=== PATIENT | female | born 1935 | race Caucasian/White ===

== ENCOUNTER 2017-10-06 22:28 | Inpatient (IN) | payer OTHER ==
--- NOTE | 2017-10-06 22:55 | PDOC ---
History of Present Illness - General Stated Complaint: FALL Time Seen by Provider: 10/06/17 22:36 History Source: Patient, Family (Son) Exam Limitations: No Limitations - History of Present Illness Initial Comments: 10/06/17 23:06 This is a 82-year-old woman with history of diabetes and right breast mass status post right mastectomy who presents emergency Department with left hip pain status post fall while at the [employer] Patient states she was walking into the bathroom felt a little unsteady and lost her balance and fell to the ground landing on her left hip. Patient denies any head trauma. Patient with full recollection of events immediately prior to, during and after fall. Patient denies any chest pain, shortness of breath or dizziness prior to the fall. Patient was assisted off the floor into a chair by her family members prior to EMS arrival. Past History - Past Medical History Allergies/Adverse Reactions: Allergies Allergy/AdvReac Type Severity Reaction Status Date / Time No Known Allergies Allergy Verified 10/06/17 23:18 Home Medications: Ambulatory Orders Clopidogrel Bisulfate [Clopidogrel] 75 mg PO DAILY 10/06/17 Insulin Detemir [Levemir Flextouch] 25 unit SQ DAILY 10/06/17 Insulin Lispro [Humalog] 100 unit SQ DAILY 10/06/17 Levothyroxine [Synthroid -] 100 mcg PO DAILY 10/06/17 Losartan/Hydrochlorothiazide [Losartan-Hctz 100-12.5 mg Tab] 1 each PO DAILY Metoprolol Succinate 100 mg PO DAILY 10/06/17 Simvastatin 20 mg PO DAILY 10/06/17 Review of Systems - Review of Systems Able to Perform ROS?: Yes Is the patient limited Swedish proficient: No Constitutional: No: Symptoms Reported HEENTM: No: Symptoms Reported Respiratory: No: Symptoms reported Cardiac (ROS): No: Symptoms Reported ABD/GI: No: Symptoms Reported : No: Symptoms Reported Musculoskeletal: Yes: See HPI Integumentary: No: Symptoms Reported Neurological: No: Symptoms reported Endocrine: No: Symptoms Reported Hematologic/Lymphatic: No: Symptoms Reported *Physical Exam - Physical Exam General Appearance: Yes: Appropriately Dressed. No: Apparent Distress HEENT: positive: Normal ENT Inspection Neck: positive: Trachea midline, Supple Respiratory/Chest: positive: Lungs Clear, Normal Breath Sounds. negative: Respiratory Distress, Accessory Muscle Use Cardiovascular: positive: Regular Rhythm, Regular Rate, S1, S2. negative: Edema , Murmur Vascular Pulses: Dorsalis-Pedis (R): 2+, Doralis-Pedis (L): 2+ Gastrointestinal/Abdominal: positive: Normal Bowel Sounds, Soft. negative: Tender Musculoskeletal: negative: Normal Inspection (Left lower extremity shortened and externally rotated. ) Extremity: positive: Normal Capillary Refill, Other (Left lower extremity shortened and externally rotated. Tender to palpation to the medial and lateral aspects of the left hip). negative: Normal Range of Motion (Unable to perform range of motion to the left hip) Integumentary: positive: Normal Color, Dry, Warm Neurologic: positive: Alert, Normal Response ED Treatment Course - LABORATORY CBC & Chemistry Diagram: 10/06/17 23:08 10/06/17 23:08 - RADIOLOGY Radiology Studies Ordered: Category Date Time Status CXRPORT [CHEST X-RAY PORTABLE*] [RAD] Stat Radiology 10/06/17 22:48 Ordered HIP & PELVIS-LEFT [RAD] Stat Radiology 10/06/17 22:47 Ordered Medical Decision Making - Medical Decision Making 10/06/17 22:53 A/P: 82-year-old woman with history of diabetes with left hip pain status post fall Respirations even nonlabored Lungs on auscultation bilaterally. RRR. No murmur, rub or gallop noted Abdomen soft nontender nondistended. Tenderness to palpation to the lateral and medial aspects of the left hip. Left lower extremity shortened and externally rotated. 2+ DP pulses present bilaterally Capillary refill less than 2 seconds bilateral lower extremities Labs, x-rays, morphine 10/07/17 01:39 X-ray of the left hip as read by me: Fracture of the left femoral neck noted. EKG- SR with rate 79 Laboratory testing reveals an VI. I'll hydrate patient with normal saline. Patient with return pain I will give the patient another dose of morphine 2 mg IV now. I will admit the patient to hospitalist service and consult orthopedics. 10/07/17 01:54 Case presented to MD Salmeron who accepts patient for admission. 10/07/17 01:54 Consult called in to Dr. Mandujano's office. *DC/Admit/Observation/Transfer Diagnosis at time of Disposition: VI (acute kidney injury) Fractured femoral neck Qualifiers: Encounter type: initial encounter Fracture type: closed Laterality: left Qualified Code(s): S72.002A - Fracture of unspecified part of neck of left femur , initial encounter for closed fracture - Discharge Dispostion Condition at time of disposition: Guarded Admit: Yes - Referrals - Patient Instructions - Post Discharge Activity
[2017-10-06 23:14] LABS: BASO % 0.3 % (0-2.0); EOS % 0.2 % (0-4.5); HEMATOCRIT 32.6 % (32.4-45.2); HEMOGLOBIN 11.2 GM/dL (10.7-15.3); LYMPH % 8.5 % (8-40); MCH 31.8 pg (25.7-33.7); MCHC 34.5 g/dl (32.0-36.0); MEAN CELL VOLUME 92.1 fl (80-96); MEAN PLT VOLUME 11.4 fl (7.5-11.1); MONO % 6.8 % (3.8-10.2); NEUT % 84.2 % (42.8-82.8); PLATELET COUNT 198 K/MM3 (134-434); RBC 3.54 M/mm3 (3.60-5.2); RDW 12.9 % (11.6-15.6); WHITE BLOOD COUNT 8.2 K/mm3 (4.0-10.0)
[2017-10-06 23:30] LABS: PROTHROMBIN TIME (PATIENT) 11.3 SEC (9.98-11.88)
[2017-10-06] MEDS ORDERED: morphine SULFATE 4 MG/ML VIAL IVPUSH ONE (23:30)
[2017-10-06 23:37] LABS: ALBUMIN 2.9 g/dl (3.4-5.0); ANION GAP 11 (8-16); BILIRUBIN,TOTAL 0.4 mg/dL (0.2-1.0); BLOOD UREA NITROGEN 36 mg/dL (7-18); CALCIUM 8.6 mg/dL (8.5-10.1); CHLORIDE 104 mmol/L (98-107); CO2 25 mmol/L (21-32); CREATININE 2.1 mg/dL (0.55-1.02); POTASSIUM 4.5 mmol/L (3.5-5.1); SGOT/AST 26 U/L (15-37); SGPT/ALT 20 U/L (12-78); SODIUM 140 mmol/L (136-145); TOT PROT 6.8 g/dl (6.4-8.2)
[2017-10-06 23:38] LABS: ALK PHOS 59 U/L (45-117)
[2017-10-06 23:41] LABS: GLUCOSE,RANDOM 337 mg/dL (74-106)
[2017-10-06] MEDS ORDERED: morphine SULFATE 4 MG/ML VIAL ONE (23:50)
[2017-10-07 00:03] LABS: URINE APPEARANCE CLEAR; URINE BILIRUBIN NEGATIVE (<2.0 mg/dL); URINE COLOR LTYELLOW; URINE GLUCOSE (UA) 3+ (NEGATIVE); URINE KETONE NEGATIVE (NEGATIVE); URINE LEUK ESTERASE NEGATIVE (NEGATIVE); URINE NITRITE NEGATIVE (NEGATIVE); URINE UROBILINOGEN NEGATIVE mg/dL (0.2-1.0)
[2017-10-07 00:15] LABS: URINE PROTEIN 3+ (NEGATIVE)
[2017-10-07 00:16] LABS: URINE BACTERIA RARE /hpf (NONE SEEN); URINE MUCUS RARE
[2017-10-07] MEDS ORDERED: INSULIN REGULAR HUMAN 100 UNITS/ML *VIAL SQ ONE (00:55)
[2017-10-07] MEDS ORDERED: morphine CARPU-JECT 2 MG/1 ML DISP.SYRIN IVPUSH ONE (01:53)
[2017-10-07] MEDS ORDERED: morphine SULFATE 4 MG/ML VIAL ONE (01:59)
[2017-10-07] MEDS ORDERED: SODIUM CHLORIDE 1,000 ML IV SCH ×2 (02:00→09:16)
[2017-10-07] MEDS ORDERED: INSULIN REGULAR HUMAN 100 UNITS/ML *VIAL ONE (02:01)
--- NOTE | 2017-10-07 02:22 | PN ---
Teaching Attending Note Name of Resident: Krystian Patricia ATTENDING PHYSICIAN STATEMENT I saw and evaluated the patient. Chart, data, imaging reviewed. I reviewed the resident's note and discussed the case with the resident. I agree with the resident's findings and plan as documented. SUBJECTIVE: 82 year old F with pmh of htn, uncontrolled dm, CAD s/p one stent, right breast mass s/p mastectomy 20 years ago presented s/p mechanical fall when she was with her family in [place] on 10/06. Patient landed on her left hip and experienced severe pain immediately after. She denied any trauma to head or LOC. Shortly after she was brought in to hospital, xray of left hip showed left femoral neck fracture. OBJECTIVE: Last Vital Signs Temp Pulse Resp BP Pulse Ox 98.2 F 84 18 136/80 98 10/06/17 22:35 10/06/17 22:35 10/06/17 22:35 10/06/17 22:35 10/06/17 23:20 general - nontoxic, supine in bed heent- atraumatic, normocephalic, poor dentition, dry oral mucosa neck- supple, no masses cv- s1+s2+ tachy chest- cta b/l abdomen- soft, nt, bs+ skin- dry, no echymosis seen msk- no wrist tenderness Abnormal Lab Results 10/06/17 10/06/17 10/06/17 23:08 23:08 23:54 RBC 3.54 L MPV 11.4 H Neutrophils % 84.2 H BUN 36 H Creatinine 2.1 H Random Glucose 337 H* Albumin 2.9 L Urine Protein 3+ H Urine Glucose (UA) 3+ H xray -reviewed, left femoral neck fracture ASSESSMENT AND PLAN: #82yo woman s/p fall with left femoral neck fracture and hyperglycemia. #Left femoral neck fracture -admit to med/surg -pain control -orthopedics consult -NPO -pain control - tylenol IV (nausea/vomiting with morphine) -left hip immobilization -bedrest -lovenox 40mg sc q24hrs for dvt ppx -no antiplatelet agents #Hyperglycemia -2/2 uncontrolled DM -half dose of basal insulin - give 12 units levemir -insulin sliding scale -send a1c -send lipid panel -IV fluid hydration #VI vs CKD -renal U/S -renal lytes, cr osm -serum osm -IV fluid hydration -avoid nephrotoxic meds -i/o -daily weights -hickey catheter for accurate i/o
[2017-10-07] MEDS ORDERED: ACETAMINOPHEN 325 MG TABLET (FP) PO PRN (02:25)
[2017-10-07] MEDS ORDERED: morphine CARPU-JECT 2 MG/1 ML DISP.SYRIN IVPUSH PRN (02:25)
--- NOTE | 2017-10-07 02:44 | HP ---
CHIEF COMPLAINT: mechanical fall HISTORY OF PRESENT ILLNESS: 82 year old F with pmh of htn, dm, right breast mass s/p mastectomy 20 years ago presented s/p mechanical fall. Patient was in her [place] until this evening when she fell in the restroom at a restaurant. Patient states she was trying to sit down on the toilet, lost her balance, and landed on her hip. Patient denies any preceding symptoms and denies any head trauma. Patient states after she fell she was borught directly to the ER. Patient denies any recent fever, chills , chest pain, sob, abdominal pain. Currently patient's pain is 10/10 in her left hip. She denies any numbness/weakness/tingling. Patient walks with a walker at baseline and lives at home with son. She can take care of her ADLs. CXR reveals femoral neck fx on left hip Recent Travel: denies PAST MEDICAL HISTORY: as per hpi + hypothyroidism PAST SURGICAL HISTORY: right mastectomy 20 yrs prior Social History: Smoking: denies Alcohol: denies Drugs: denies Family History: Allergies No Known Allergies Allergy (Verified 10/06/17 23:18) HOME MEDICATIONS: Home Medications Medication Instructions Recorded Clopidogrel Bisulfate [Clopidogrel] 75 mg PO DAILY 10/06/17 Insulin Detemir [Levemir Flextouch] 25 unit SQ DAILY 10/06/17 Insulin Lispro [Humalog] 100 unit SQ DAILY 10/06/17 Levothyroxine [Synthroid -] 100 mcg PO DAILY 10/06/17 Losartan/Hydrochlorothiazide 1 each PO DAILY 10/06/17 [Losartan-Hctz 100-12.5 mg Tab] Metoprolol Succinate 100 mg PO DAILY 10/06/17 Simvastatin 20 mg PO DAILY 10/06/17 REVIEW OF SYSTEMS CONSTITUTIONAL: Absent: fever, chills, diaphoresis, generalized weakness, malaise, loss of appetite, weight change HEENT: Absent: rhinorrhea, nasal congestion, throat pain, throat swelling, difficulty swallowing, mouth swelling, ear pain, eye pain, visual changes CARDIOVASCULAR: Absent: chest pain, syncope, palpitations, irregular heart rate, lightheadedness , peripheral edema RESPIRATORY: Absent: cough, shortness of breath, dyspnea with exertion, orthopnea, wheezing, stridor, hemoptysis GASTROINTESTINAL: Absent: abdominal pain, abdominal distension, nausea, vomiting, diarrhea, constipation, melena, hematochezia GENITOURINARY: Absent: dysuria, frequency, urgency, hesitancy, hematuria, flank pain, genital pain MUSCULOSKELETAL: Absent: myalgia, arthralgia, joint swelling, back pain, neck pain, hip pain SKIN: Absent: rash, itching, pallor HEMATOLOGIC/IMMUNOLOGIC: Absent: easy bleeding, easy bruising, lymphadenopathy, frequent infections ENDOCRINE: Absent: unexplained weight gain, unexplained weight loss, heat intolerance, cold intolerance NEUROLOGIC: Absent: headache, focal weakness or paresthesias, dizziness, unsteady gait, seizure, mental status changes, bladder or bowel incontinence PSYCHIATRIC: Absent: anxiety, depression, suicidal or homicidal ideation, hallucinations. PHYSICAL EXAMINATION Vital Signs - 24 hr 10/06/17 10/06/17 22:35 23:20 Temperature 98.2 F Pulse Rate 84 Respiratory 18 Rate Blood Pressure 136/80 O2 Sat by Pulse 96 98 Oximetry (%) GENERAL: Awake, alert, and fully oriented, in mild distress HEAD: Normal with no signs of trauma. EYES: Extraocular movements intact, sclera anicteric, conjunctiva clear. No lid lag. EARS, NOSE, THROAT: Oropharynx clear without exudates. Dry mucous membranes. NECK: supple LUNGS: Breath sounds equal, clear to auscultation bilaterally. No wheezes, and no crackles. No accessory muscle use. HEART: Tachycardic, regular rhythm, normal S1 and S2 without murmur, rub or gallop. ABDOMEN: Soft, nontender, not distended, normoactive bowel sounds, no guarding, no rebound, no masses. No hepatomegaly or splenomegaly. MUSCULOSKELETAL: + TTP to left hip joint, Decreased ROM of left hip LOWER EXTREMITIES: 2+ popliteal, DP pulses, warm, well-perfused. No calf tenderness. No peripheral edema. NEUROLOGICAL: Cranial nerves II-XII intact. PSYCHIATRIC: Cooperative. Good eye contact. Appropriate mood and affect. SKIN: Warm, dry, normal turgor, no rashes or lesions noted, normal capillary refill. Laboratory Results - last 24 hr 10/06/17 10/06/17 10/06/17 23:08 23:08 23:08 WBC 8.2 RBC 3.54 L Hgb 11.2 Hct 32.6 MCV 92.1 MCH 31.8 MCHC 34.5 RDW 12.9 Plt Count 198 MPV 11.4 H Neutrophils % 84.2 H Lymphocytes % 8.5 Monocytes % 6.8 Eosinophils % 0.2 Basophils % 0.3 PT with INR 11.30 INR 1.00 Sodium 140 Potassium 4.5 Chloride 104 Carbon Dioxide 25 Anion Gap 11 BUN 36 H Creatinine 2.1 H Creat Clearance w eGFR 22.49 Random Glucose 337 H* Calcium 8.6 Total Bilirubin 0.4 AST 26 ALT 20 Alkaline Phosphatase 59 Total Protein 6.8 Albumin 2.9 L Urine Color Urine Appearance Urine pH Ur Specific [place] Urine Protein Urine Glucose (UA) Urine Ketones Urine Blood Urine Nitrite Urine Bilirubin Urine Urobilinogen Ur Leukocyte Esterase Urine WBC (Auto) Urine RBC (Auto) Urine Bacteria Urine Mucus Blood Type Antibody Screen 10/06/17 10/06/17 23:08 23:54 WBC RBC Hgb Hct MCV MCH MCHC RDW Plt Count MPV Neutrophils % Lymphocytes % Monocytes % Eosinophils % Basophils % PT with INR INR Sodium Potassium Chloride Carbon Dioxide Anion Gap BUN Creatinine Creat Clearance w eGFR Random Glucose Calcium Total Bilirubin AST ALT Alkaline Phosphatase Total Protein Albumin Urine Color Ltyellow Urine Appearance Clear Urine pH 7.0 Ur Specific [place] 1.012 Urine Protein 3+ H Urine Glucose (UA) 3+ H Urine Ketones Negative Urine Blood Negative Urine Nitrite Negative Urine Bilirubin Negative Urine Urobilinogen Negative Ur Leukocyte Esterase Negative Urine WBC (Auto) 1 Urine RBC (Auto) 1 Urine Bacteria Rare Urine Mucus Rare Blood Type B POSITIVE Antibody Screen Negative ASSESSMENT/PLAN: 82 year old F with pmh of htn, dm, right breast mass s/p mastectomy 20 years ago presented s/p mechanical fall and found to have left femoral neck fx #Femoral neck fx -iv tylenol for pain control, morphine makes pt nauesous -ortho consulted -ivf @ 100 cc/hr -coags/t&s -cardiology consulted for pre op clearancee #VI vs CKD -baseline cr unknown -ivf @ 100 cc/hr -renal us, serum osm, urine lytes, urine osm, urine cr -avoid nephrotoxic medication -hickey in place -monitor cr #DM -BGM achs -ISS achs #HTN -hold antihtn given kidney disease #CAD s/p stent -hold plavix pending OR for procedure #Hypothyroidism -continue synthroid #hld -continue statin #FEN/GI -ivf @ 100 cc/hr -wnl -npo #ppx lovenox 40 sq daily Visit type - Emergency Visit Emergency Visit: Yes ED Registration Date: 10/07/17 Care time: The patient presented to the Emergency Department on the above date and was hospitalized for further evaluation of their emergent condition. - New Patient This patient is new to me today: Yes Date on this admission: 10/07/17 - Critical Care Critical Care patient: No Hospitalist Screening - Colonoscopy Questionnaire Colonoscopy Questionnaire: Colonoscopy Questionnaire - Patient: 50 - 75 years old and never had a screening colonoscopy: Unknown History of colon or rectal polyps, or CA: Unknown History of IBD, Crohn's disease or UC: Unknown History of abdominal radiation therapy as a child: Unknown - Relative: 1 with colon or rectal CA, or polyps at age 60 or younger: Unknown Colon or rectal CA diagnosed at age 45 or younger: Unknown Multiple relatives with colon or rectal CA: Unknown - Outcome: Screening Result: Negative Screen
[2017-10-07] MEDS ORDERED: ACETAMINOPHEN 1000 MG/100 ML VIAL (NON FORMULARY) IVPB PRN (03:25)
[2017-10-07 04:57] VITALS: BMI 21.7
[2017-10-07] MEDS: INSULIN SLIDING SCALE (NOVOLOG) 1 VIAL SQ SCH ×4 (06:45→22:40)
[2017-10-07] MEDS: LEVOTHYROXINE NA 100 MCG TABLET (FP) PO SCH (06:45)
[2017-10-07 08:21] LABS: INR 1.02 (0.82-1.09); PROTHROMBIN TIME (PATIENT) 11.5 SEC (9.98-11.88)
[2017-10-07 08:23] LABS: ACTIVATED PTT 26.5 SECONDS (26.9-34.4)
[2017-10-07 08:29] LABS: BASO % 0.1 % (0-2.0); HEMATOCRIT 30.3 % (32.4-45.2); HEMOGLOBIN 10.4 GM/dL (10.7-15.3); LYMPH % 4.5 % (8-40); MCH 31.1 pg (25.7-33.7); MCHC 34.3 g/dl (32.0-36.0); MEAN CELL VOLUME 90.5 fl (80-96); MEAN PLT VOLUME 11.2 fl (7.5-11.1); MONO % 4.5 % (3.8-10.2); NEUT % 90.9 % (42.8-82.8); PLATELET COUNT 183 K/MM3 (134-434); RBC 3.35 M/mm3 (3.60-5.2); RDW 12.8 % (11.6-15.6); WHITE BLOOD COUNT 12.5 K/mm3 (4.0-10.0)
--- NOTE | 2017-10-07 08:37 | EKG ---
Test Reason : Blood Pressure : / mmHG Vent. Rate : 078 BPM Atrial Rate : 078 BPM P-R Int : 156 ms QRS Dur : 090 ms QT Int : 422 ms P-R-T Axes : 072 040 078 degrees QTc Int : 481 ms NORMAL SINUS RHYTHM POSSIBLE LEFT ATRIAL ENLARGEMENT NONSPECIFIC ST AND T WAVE ABNORMALITY PROLONGED QT ABNORMAL ECG NO PREVIOUS ECGS AVAILABLE Confirmed by TAMERA WHITLEY MD ([id number]) on 10/07/2017 8:36:29 AM Referred By: Confirmed By:TAMERA WHITLEY MD
[2017-10-07 08:40] LABS: ALBUMIN 2.6 g/dl (3.4-5.0); ANION GAP 14 (8-16); BLOOD UREA NITROGEN 35 mg/dL (7-18); CALCIUM 8.2 mg/dL (8.5-10.1); CHLORIDE 106 mmol/L (98-107); CO2 21 mmol/L (21-32); GLUCOSE,RANDOM 265 mg/dL (74-106); MAGNESIUM 1.8 mg/dL (1.8-2.4); PHOSPHOROUS 3.9 mg/dL (2.5-4.9); POTASSIUM 3.8 mmol/L (3.5-5.1); SGOT/AST 23 U/L (15-37); SGPT/ALT 17 U/L (12-78); SODIUM 141 mmol/L (136-145)
[2017-10-07 08:41] LABS: ALK PHOS 54 U/L (45-117); BILIRUBIN,TOTAL 0.5 mg/dL (0.2-1.0); CREATININE 1.7 mg/dL (0.55-1.02); TOT PROT 6.1 g/dl (6.4-8.2)
[2017-10-07] MEDS ORDERED: ONDANSETRON 4 MG/2 ML VIAL IVPUSH PRN (09:37)
[2017-10-07] MEDS ORDERED: ENOXAPARIN NA (PORCINE) 30 MG/0.3 ML DISP.SYRIN SQ SCH (10:00)
[2017-10-07] MEDS ORDERED: PATIENT'S OWN MEDICATION (NON-FORMULARY) (Losartan/Hydrochlorothiazide [Losartan-Hctz 100- PO SCH (10:00)
--- NOTE | 2017-10-07 10:58 | CON.CARD ---
Consult Consult Specialty:: Cardiology Referred by:: Kentrell Salmeron Reason for Consultation:: preop. CAD - History of Present Illness Chief Complaint: hip fracture History of Present Illness: 82 year old female with a pmhx of htn, dm, right breast mass s/p mastectomy 20 years ago, and CAD s/p stent many years ago who presents with hip fracture after a fall. Patient was in restroom at a restaurant and was trying to sit down when lost her balance and landed on her hip. Denies any loc. No chest pain or palpitations prior. Patient denies any chest pain or sob recently. No pnd, orthopnea, or edema. No syncope. Reports her exercise level is poor at baseline and requires a walker due to balance issues. - History Source History Provided By: Patient - Past Medical History Cardio/Vascular: Yes: CAD, HTN Pulmonary: Yes: Cancer - Alcohol/Substance Use Hx Alcohol Use: No - Smoking History Smoking history: Never smoked Home Medications - Allergies Allergies/Adverse Reactions: Allergies Allergy/AdvReac Type Severity Reaction Status Date / Time No Known Allergies Allergy Verified 10/06/17 23:18 - Home Medications Home Medications: Ambulatory Orders Clopidogrel Bisulfate [Clopidogrel] 75 mg PO DAILY 10/06/17 Insulin Detemir [Levemir Flextouch] 25 unit SQ DAILY 10/06/17 Insulin Lispro [Humalog] 100 unit SQ DAILY 10/06/17 Levothyroxine [Synthroid -] 100 mcg PO DAILY 10/06/17 Losartan/Hydrochlorothiazide [Losartan-Hctz 100-12.5 mg Tab] 1 each PO DAILY Metoprolol Succinate 100 mg PO DAILY 10/06/17 Simvastatin 20 mg PO DAILY 10/06/17 Vital Signs: Vital Signs Temperature 98.1 F 10/07/17 07:50 Pulse Rate 94 H 10/07/17 07:50 Respiratory Rate 18 10/07/17 07:50 Blood Pressure 152/90 10/07/17 07:50 O2 Sat by Pulse Oximetry (%) 98 10/07/17 04:34 Constitutional: Yes: No Distress Neck: Yes: Supple Respiratory: Yes: CTA Bilaterally Gastrointestinal: Yes: Normal Bowel Sounds, Soft Cardiovascular: Yes: Regular Rate and Rhythm JVD: No Carotid Bruit: No PMI: Non-Displaced Heart Sounds: Yes: S1, S2 Murmur: Yes: Systolic Murmur (3/6 HSM apex) Edema: No - Other Data Labs, Other Data: CBC, BMP 10/07/17 08:05 10/07/17 07:15 INR, PTT INR 1.02 (0.82-1.09) 10/07/17 07:15 Imaging - Results Chest X-ray: Report Reviewed EKG: Image Reviewed Problem List - Problems (1) Fractured femoral neck Code(s): S72.009A - FRACTURE OF UNSP PART OF NECK OF UNSP FEMUR, INIT Qualifiers: Encounter type: initial encounter Fracture type: closed Laterality: left Qualified Code(s): S72.002A - Fracture of unspecified part of neck of left femur, initial encounter for closed fracture Assessment/Plan 82 year old female with a pmhx of htn, dm, right breast mass s/p mastectomy 20 years ago, and CAD s/p stent many years ago who presents with hip fracture after a fall found to have a hip fracture. CXR: no chf EKG: sinus rhythm at 78bpm, nl axis, nonspecific t wave abnormalities Cr 2.1 now 1.7 1) Preop for hip fracture -Ms. Sutton's risk factors are htn, dm, cad, and VI on possible CKD. She denies any chest pain or sob. No chf on exam. Has a murmur in mitral area possible MR. EKG with nonspecific T wave abnormalities. No cardiac contraindications to hip fracture surgery. Patient reports that she takes aspirin and plavix at home. Plavix on hold. Would prefer to continue aspirin if possible. IVF's for VI Would continue beta thania periop given h/o CAD. Please call back if needed.
[2017-10-07 11:05] LABS: URINE CREATININE 28.5 mg/dL (20-320)
--- NOTE | 2017-10-07 12:37 | PN ---
Progress Note (short form) - Note Progress Note: Pt seen and examined. She is an 82 year old female pt s/p fall 1 day ago, c/o pain in the left hip. PE LLE is grossly NVI LLE is shortened and externally rotated Good ROM at the left ankle, foot, toes Imp Left hip displaced femoral neck fracture Rec Pt needs Left Hip surgery, left hip hemiarthroplasty. Awaiting medical and cardiac clearance NPO after midnight tonight Will do tomorrow if cleared
--- NOTE | 2017-10-07 13:13 | HOSP ---
Subjective - Review of Symptoms Subjective: Pt reports pain to left hip. Denies sob, chest pain, fever, chills Physical Examination Vital Signs: Vital Signs Temperature 98.1 F 10/07/17 07:50 Pulse Rate 94 H 10/07/17 07:50 Respiratory Rate 18 10/07/17 07:50 Blood Pressure 152/90 10/07/17 07:50 O2 Sat by Pulse Oximetry (%) 98 10/07/17 04:34 Eyes: Yes: Conjunctiva Clear Cardiovascular: Yes: Regular Rate and Rhythm, S1, S2 Respiratory: Yes: Regular, CTA Bilaterally Gastrointestinal: Yes: Normal Bowel Sounds, Soft Breast(s): Yes: Right (mastectomy) Musculoskeletal: Yes: Other (L hip tenderness) Edema: No Neurological: Yes: Alert, Oriented, Cran Nerves II-XII Intact Labs: CBC, BMP 10/07/17 08:05 10/07/17 07:15 Hospitalist Encounter Assessment: Assessment: 82 year old female with pmhx of HTN, DM II, right breast mass s/p mastectomy 20 years ago admitted s/p mechanical fall and found to have left femoral neck fx Plan: 1. Femoral neck fx - For surgery tomorrow - No cardiac contraindications to hip fracture surgery - NPO after midnight 2. 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 CAD s/p stent - Started toprol xl 100mg daily - Plavix on hold - Resume ASA following surgery per surgery rec 4. HTN - Hold HCTZ/losartan combo due to above 5. DM II - ISS, BGM ACHS 7. Hypothyroid - Synthroid 8. HLD - Statin 9. DVT - Heparin sq - hold at midnight
[2017-10-07] MEDS: HEPARIN NA (PORCINE) 5,000 UNITS/ML 1ML VIAL SQ SCH ×2 (13:38→22:35)
[2017-10-07 14:49] LABS: BASO % 0.2 % (0-2.0); HEMATOCRIT 19.6 % (32.4-45.2); LYMPH % 4.4 % (8-40); MCH 31.6 pg (25.7-33.7); MCHC 34.6 g/dl (32.0-36.0); MEAN CELL VOLUME 91.4 fl (80-96); NEUT % 91.4 % (42.8-82.8); PLATELET COUNT 127 K/MM3 (134-434); RBC 2.14 M/mm3 (3.60-5.2); RDW 12.7 % (11.6-15.6)
[2017-10-07 15:05] LABS: HEMOGLOBIN 6.8 GM/dL (10.7-15.3)
--- NOTE | 2017-10-07 16:09 | CONSULT ---
Consult Consult Specialty:: Nephrology Reason for Consultation:: VI - History of Present Illness Chief Complaint: s/p fall and left hip pain History of Present Illness: Pt is an 82 year old female with pmhx of DM who presents to the ER after a fall. She was found to have a left femoral fracture. I was called to evaluate her for VI. She denies history of kidney disease. She denies dysuria or hematuria. She denies nsaid use. She complains of hip pain. She says she lost her balance while walking and fell to the floor. - History Source History Provided By: Patient, Medical Record - Past Medical History Cardio/Vascular: Yes: CAD, HTN Pulmonary: Yes: Cancer - Alcohol/Substance Use Hx Alcohol Use: No - Smoking History Smoking history: Never smoked Home Medications - Allergies Allergies/Adverse Reactions: Allergies Allergy/AdvReac Type Severity Reaction Status Date / Time No Known Allergies Allergy Verified 10/06/17 23:18 - Home Medications Home Medications: Ambulatory Orders Clopidogrel Bisulfate [Clopidogrel] 75 mg PO DAILY 10/06/17 Insulin Detemir [Levemir Flextouch] 25 unit SQ DAILY 10/06/17 Insulin Lispro [Humalog] 100 unit SQ DAILY 10/06/17 Levothyroxine [Synthroid -] 100 mcg PO DAILY 10/06/17 Losartan/Hydrochlorothiazide [Losartan-Hctz 100-12.5 mg Tab] 1 each PO DAILY Metoprolol Succinate 100 mg PO DAILY 10/06/17 Simvastatin 20 mg PO DAILY 10/06/17 Family Disease History - Family Disease History Family History: Denies Review of Systems - Review of Systems Constitutional: reports: Malaise Eyes: reports: No Symptoms HENT: reports: No Symptoms Neck: reports: No Symptoms Cardiovascular: reports: No Symptoms Respiratory: reports: No Symptoms Gastrointestinal: reports: No Symptoms Genitourinary: reports: No Symptoms Musculoskeletal: reports: Joint Pain Neurological: reports: No Symptoms Psychiatric: reports: No Symptoms Physical Exam Vital Signs: Vital Signs Temperature 98.7 F 10/07/17 14:00 Pulse Rate 94 H 10/07/17 14:00 Respiratory Rate 20 10/07/17 14:00 Blood Pressure 152/90 10/07/17 07:50 O2 Sat by Pulse Oximetry (%) 98 10/07/17 04:34 Constitutional: Yes: Calm Eyes: Yes: Conjunctiva Clear HENT: Yes: Atraumatic Cardiovascular: Yes: S1, S2 Respiratory: Yes: CTA Bilaterally Gastrointestinal: Yes: Soft Renal/: Yes: Chua Present Musculoskeletal: Yes: Other (left hip pain) Edema: Yes Edema: LLE: 1+, RLE: 1+ Neurological: Yes: Oriented Psychiatric: Yes: Oriented Labs: CBC, BMP 10/07/17 14:28 10/07/17 07:15 Laboratory Tests 10/06/17 10/06/17 10/06/17 23:08 23:08 23:54 WBC Hgb 11.2 Plt Count BUN Creatinine 2.1 H Random Glucose Urine Protein 3+ H Urine Blood Negative 10/07/17 10/07/17 10/07/17 07:15 08:05 14:28 WBC 8.0 D Hgb 10.4 L 6.8 L* D Plt Count 127 L D BUN 35 H Creatinine 1.7 H Random Glucose 265 H Urine Protein Urine Blood Imaging - Results Chest X-ray: Report Reviewed Problem List - Problems (1) VI (acute kidney injury) Code(s): N17.9 - ACUTE KIDNEY FAILURE, UNSPECIFIED (2) Fractured femoral neck Code(s): S72.009A - FRACTURE OF UNSP PART OF NECK OF UNSP FEMUR, INIT Qualifiers: Encounter type: initial encounter Fracture type: closed Laterality: left Qualified Code(s): S72.002A - Fracture of unspecified part of neck of left femur, initial encounter for closed fracture Assessment/Plan Current Medications Generic Name Dose Route Start Last Admin Trade Name Freq PRN Reason Stop Dose Admin Acetaminophen 1,000 mg 10/07/17 03:25 10/07/17 13:32 Ofirmev Injection - IVPB 1,000 mg Q6H PRN Administration PAIN LEVEL 6-10 Atorvastatin Calcium 10 mg 10/07/17 22:00 Lipitor - PO HS REYNALDO Heparin Sodium (Porcine) 5,000 unit 10/07/17 14:00 10/07/17 13:38 Heparin - SQ 5,000 unit TID REYNALDO Administration Sodium Chloride 1,000 mls @ 60 mls/hr 10/07/17 09:16 10/07/17 10:00 Normal Saline - IV Not Given ASDIR REYNALDO Insulin Aspart 1 vial 10/07/17 07:00 10/07/17 12:36 Novolog Vial Sliding Scale - SQ 10 unit ACHS REYNALDO Administration Protocol Levothyroxine Sodium 100 mcg 10/07/17 07:00 10/07/17 06:45 Synthroid - PO 100 mcg DAILY@0700 REYNALDO Administration Metoprolol Succinate 100 mg 10/07/17 11:15 10/07/17 11:34 Toprol Xl - PO 100 mg DAILY REYNALDO Administration Ondansetron HCl 4 mg 10/07/17 09:37 10/07/17 12:01 Zofran Injection IVPUSH 4 mg Q6H PRN Administration NAUSEA Impression 1. VI 2. femoral neck fracture 3. breast cancer s/p mastectomy 4. DM 5. HTN 6. 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
[2017-10-07 16:58] LABS: BASO % 0.4 % (0-2.0); HEMATOCRIT 27.2 % (32.4-45.2); HEMOGLOBIN 9.3 GM/dL (10.7-15.3); MCH 31.1 pg (25.7-33.7); MCHC 34.2 g/dl (32.0-36.0); MEAN CELL VOLUME 91.2 fl (80-96); MEAN PLT VOLUME 11.6 fl (7.5-11.1); MONO % 6.4 % (3.8-10.2); NEUT % 88.2 % (42.8-82.8); PLATELET COUNT 178 K/MM3 (134-434); RBC 2.99 M/mm3 (3.60-5.2); RDW 12.9 % (11.6-15.6); WHITE BLOOD COUNT 11.7 K/mm3 (4.0-10.0)
[2017-10-07] MEDS: SODIUM CHLORIDE 0.45% 1,000 ML IV SCH (17:45)
[2017-10-07 18:01] LABS: URINE CREATININE 44.4 mg/dL (20-320)
[2017-10-07 18:08] LABS: RATIO URIN PROTEIN/URIN CREAT 25.8 MG/DL
[2017-10-07] MEDS: ATORVASTATIN CA 10 MG TABLET (FP) PO SCH (22:34)
[2017-10-08] MEDS: SODIUM CHLORIDE 0.45% 1,000 ML IV SCH (05:15)
[2017-10-08] MEDS: HEPARIN NA (PORCINE) 5,000 UNITS/ML 1ML VIAL SQ SCH (05:58)
[2017-10-08] MEDS: INSULIN SLIDING SCALE (NOVOLOG) 1 VIAL SQ SCH ×4 (06:08→21:33)
[2017-10-08] MEDS: LEVOTHYROXINE NA 100 MCG TABLET (FP) PO SCH (06:08)
[2017-10-08 08:46] LABS: ANION GAP 15 (8-16); BLOOD UREA NITROGEN 38 mg/dL (7-18); CALCIUM 8.2 mg/dL (8.5-10.1); CHLORIDE 104 mmol/L (98-107); CO2 19 mmol/L (21-32); CREATININE 2.1 mg/dL (0.55-1.02); GLUCOSE,RANDOM 191 mg/dL (74-106); POTASSIUM 3.8 mmol/L (3.5-5.1); SODIUM 138 mmol/L (136-145)
--- NOTE | 2017-10-08 08:55 | PN ---
Progress Note (short form) - Note Progress Note: Ortho OR today for left hip quinten a/p NPO OR for this afternoon d/w Dr. Martinez
[2017-10-08] MEDS ORDERED: LOSARTAN POTASSIUM 50 MG TABLET (FP) PO ONE (12:00)
[2017-10-08] MEDS ORDERED: LORazepam 0.5 MG TABLET PO ONE (12:00)
--- NOTE | 2017-10-08 12:41 | PN ---
Progress Note, Physician History of Present Illness: Pt seen and examined at bedside. She is awake and alert. She denies shortness of breath. She is anxious. - Current Medication List Current Medications: Active Medications Acetaminophen (Ofirmev Injection -) 1,000 mg IVPB Q6H PRN PRN Reason: PAIN LEVEL 6-10 Last Admin: 10/07/17 13:32 Dose: 1,000 mg Atorvastatin Calcium (Lipitor -) 10 mg PO HS [facility] Last Admin: 10/07/17 22:34 Dose: 10 mg Heparin Sodium (Porcine) (Heparin -) 5,000 unit SQ TID [facility] Last Admin: 10/08/17 05:58 Dose: Not Given Insulin Aspart (Novolog Vial Sliding Scale -) 1 vial SQ ACHS [facility] PRN Reason: Protocol Last Admin: 10/08/17 11:51 Dose: Not Given Levothyroxine Sodium (Synthroid -) 100 mcg PO DAILY@0700 [facility] Last Admin: 10/08/17 06:08 Dose: 100 mcg Metoprolol Succinate (Toprol Xl -) 75 mg PO BID [facility] Ondansetron HCl (Zofran Injection) 4 mg IVPUSH Q6H PRN PRN Reason: NAUSEA Last Admin: 10/07/17 12:01 Dose: 4 mg - Objective Vital Signs: Vital Signs Temperature 99 F 10/08/17 05:26 Pulse Rate 74 10/08/17 05:26 Respiratory Rate 20 10/08/17 05:26 Blood Pressure 190/77 10/08/17 05:26 O2 Sat by Pulse Oximetry (%) 98 10/07/17 20:19 Constitutional: Yes: Anxious Eyes: Yes: Conjunctiva Clear Cardiovascular: Yes: S1, S2 Respiratory: Yes: CTA Bilaterally Gastrointestinal: Yes: Soft Genitourinary: Yes: Chua Present Musculoskeletal: Yes: Other (leg pain) Edema: Yes Edema: LLE: Trace, RLE: Trace Neurological: Yes: Oriented Psychiatric: Yes: Oriented Labs: CBC, BMP 10/07/17 16:40 10/08/17 08:07 INR, PTT INR 1.02 (0.82-1.09) 10/07/17 07:15 Problem List - Problems (1) VI (acute kidney injury) Code(s): N17.9 - ACUTE KIDNEY FAILURE, UNSPECIFIED (2) Fractured femoral neck Code(s): S72.009A - FRACTURE OF UNSP PART OF NECK OF UNSP FEMUR, INIT Qualifiers: Encounter type: initial encounter Fracture type: closed Laterality: left Qualified Code(s): S72.002A - Fracture of unspecified part of neck of left femur, initial encounter for closed fracture Assessment/Plan Current Medications Generic Name Dose Route Start Last Admin Trade Name Freq PRN Reason Stop Dose Admin Acetaminophen 1,000 mg 10/07/17 03:25 10/07/17 13:32 Ofirmev Injection - IVPB 1,000 mg Q6H PRN Administration PAIN LEVEL 6-10 Atorvastatin Calcium 10 mg 10/07/17 22:00 10/07/17 22:34 Lipitor - PO 10 mg HS REYNALDO Administration Heparin Sodium (Porcine) 5,000 unit 10/07/17 14:00 10/08/17 05:58 Heparin - SQ Not Given TID [facility] Insulin Aspart 1 vial 10/07/17 07:00 10/08/17 11:51 Novolog Vial Sliding Scale - SQ Not Given ACHS [facility] Protocol Levothyroxine Sodium 100 mcg 10/07/17 07:00 10/08/17 06:08 Synthroid - PO 100 mcg DAILY@0700 REYNALDO Administration Metoprolol Succinate 75 mg 10/08/17 22:00 Toprol Xl - PO BID REYNA[facility]O Ondansetron HCl 4 mg 10/07/17 09:37 10/07/17 12:01 Zofran Injection IVPUSH 4 mg Q6H PRN Administration NAUSEA Laboratory Tests 10/07/17 16:40 Creatine Kinase 68 Impression 1. VI 2. femoral neck fracture 3. breast cancer s/p mastectomy 4. DM 5. HTN 6. 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
[2017-10-08] MEDS ORDERED: METOPROLOL TARTRATE 5 MG/5 ML VIAL IVPUSH ONE (13:04)
[2017-10-08] MEDS ORDERED: METOPROLOL TARTRATE 5 MG/5 ML VIAL IVPB ONE (13:30)
--- NOTE | 2017-10-08 14:08 | PN ---
Physical Exam: SUBJECTIVE: Patient seen and examined at bedside. Has pain with movement. OBJECTIVE: Vital Signs Period Temp Pulse Resp BP Sys/Buckley Pulse Ox Last 24 Hr 99 F-99.0 F 74-75 20-22 146-211/74-96 90-98 GENERAL: The patient is awake, alert, and fully oriented, in no acute distress. Mildly anxious. LUNGS: Breath sounds equal, clear to auscultation bilaterally, no wheezes, no crackles, no accessory muscle use. HEART: Regular rate and rhythm, S1, S2 ABDOMEN: Soft, nontender, nondistended, normoactive bowel sounds, no guarding, no rebound LOWER EXTREMITIES: 2+ pulses, warm, well-perfused, no edema. Left leg rotated and shorter NEUROLOGICAL: Cranial nerves II through XII grossly intact. Normal speech, gait not observed. Laboratory Results - last 24 hr 10/07/17 10/07/17 10/07/17 08:10 14:28 16:30 WBC 8.0 D RBC 2.14 L D Hgb 6.8 L* D Hct 19.6 L D MCV 91.4 MCH 31.6 MCHC 34.6 RDW 12.7 Plt Count 127 L D MPV 10.0 D Neutrophils % 91.4 H Lymphocytes % 4.4 L Monocytes % 4.0 Eosinophils % 0.0 Basophils % 0.2 Sodium Potassium Chloride Carbon Dioxide Anion Gap BUN Creatinine POC Glucometer Random Glucose Hemoglobin A1c % Calcium Creatine Kinase U Random Total Protein 1147 H Urine Creatinine 44.4 Protein/Creatinin Ratio 25.8 Blood Type B POSITIVE Antibody Screen Negative Crossmatch See Detail 10/07/17 10/07/17 10/07/17 16:40 16:40 17:11 WBC 11.7 H D RBC 2.99 L D Hgb 9.3 L D Hct 27.2 L D MCV 91.2 MCH 31.1 MCHC 34.2 RDW 12.9 Plt Count 178 D MPV 11.6 H D Neutrophils % 88.2 H Lymphocytes % 5.0 L Monocytes % 6.4 Eosinophils % 0.0 Basophils % 0.4 Sodium Potassium Chloride Carbon Dioxide Anion Gap BUN Creatinine POC Glucometer 267 Random Glucose Hemoglobin A1c % Calcium Creatine Kinase 68 U Random Total Protein Urine Creatinine Protein/Creatinin Ratio Blood Type Antibody Screen Crossmatch 10/07/17 10/08/17 10/08/17 22:37 05:16 08:07 WBC RBC Hgb Hct MCV MCH MCHC RDW Plt Count MPV Neutrophils % Lymphocytes % Monocytes % Eosinophils % Basophils % Sodium 138 Potassium 3.8 Chloride 104 Carbon Dioxide 19 L Anion Gap 15 BUN 38 H Creatinine 2.1 H POC Glucometer 250 208 Random Glucose 191 H Hemoglobin A1c % Calcium 8.2 L Creatine Kinase U Random Total Protein Urine Creatinine Protein/Creatinin Ratio Blood Type Antibody Screen Crossmatch 10/08/17 10/08/17 08:07 11:16 WBC RBC Hgb Hct MCV MCH MCHC RDW Plt Count MPV Neutrophils % Lymphocytes % Monocytes % Eosinophils % Basophils % Sodium Potassium Chloride Carbon Dioxide Anion Gap BUN Creatinine POC Glucometer 240 Random Glucose Hemoglobin A1c % 9.3 H Calcium Creatine Kinase U Random Total Protein Urine Creatinine Protein/Creatinin Ratio Blood Type Antibody Screen Crossmatch Active Medications Generic Name Dose Route Start Last Admin Trade Name Freq PRN Reason Stop Dose Admin Acetaminophen 1,000 mg 10/07/17 03:25 10/07/17 13:32 Ofirmev Injection - IVPB 1,000 mg Q6H PRN Administration PAIN LEVEL 6-10 Atorvastatin Calcium 10 mg 10/07/17 22:00 10/07/17 22:34 Lipitor - PO 10 mg HS [facility] Administration Heparin Sodium (Porcine) 5,000 unit 10/07/17 14:00 10/08/17 05:58 Heparin - SQ Not Given TID [facility] Insulin Aspart 1 vial 10/07/17 07:00 10/08/17 11:51 Novolog Vial Sliding Scale - SQ Not Given ACHS [facility] Protocol Levothyroxine Sodium 100 mcg 10/07/17 07:00 10/08/17 06:08 Synthroid - PO 100 mcg DAILY@0700 [facility] Administration Metoprolol Succinate 100 mg 10/08/17 22:00 Toprol Xl - PO BID REYNALDO Nifedipine 30 mg 10/08/17 14:15 Procardia Xl - PO DAILY [facility] Ondansetron HCl 4 mg 10/07/17 09:37 10/07/17 12:01 Zofran Injection IVPUSH 4 mg Q6H PRN Administration NAUSEA ASSESSMENT/PLAN 82 year-old female with a PMH significant for HTN, IDDM, CAD s/p stent, and right breast mass s/p mastectomy x 20 years. Admitted for left hip fracture s/p mechanical fall. Acute left femoral neck fracture with varus deformity --to OR tomorrow if BP stable Hypertensive urgency --serial readings SBP>200 --increase Toprol XL 100mg to BID, continue home losartan (monitoring renal function), start nifedipine XL 30mg BID and titrate as needed --if fourth agent is needed, consider clonipine --cardiology following IDDM --Novolog sliding scale coverage --Levemir 25U qhs Coronary artery disease --ASA and Plavix on hold for surgery FEN Fluids: PO intake adequate Electrolytes: replete as indicated Nutrition: low sodium, diabetic; NPO after midnight DVT prophylaxis: SCD on right leg; FREDRICK on left leg Physical therapy Dispo: continues to require inpatient care. Full code. Discussed case with patient's son Napoleon [phone]. Visit type - Emergency Visit Emergency Visit: Yes ED Registration Date: 10/07/17 Care time: The patient presented to the Emergency Department on the above date and was hospitalized for further evaluation of their emergent condition. - New Patient This patient is new to me today: Yes Date on this admission: 10/08/17 - Critical Care Critical Care patient: No
[2017-10-08] MEDS ORDERED: NIFEdipine E.R. 30 MG TABLET (FP) PO SCH (14:15)
--- NOTE | 2017-10-08 14:24 | PN ---
Progress Note, Physician Chief Complaint: Reconsult for severe hypertension. The patient appears confortable. She denies chest pain, SOB or palpitation. History of Present Illness: 82 year old woman with a PMHx of HTN, DM, right breast mass s/p mastectomy 20 years ago, and CAD s/p stent many years ago admitted 10/06/2017 after a mechanical fall with left hip fracture. The patient was seen by Dr. James 2017 for preoperative cardiac clearance. But the planned operation canceled because of severe HTN. - Current Medication List Current Medications: Active Medications Acetaminophen (Ofirmev Injection -) 1,000 mg IVPB Q6H PRN PRN Reason: PAIN LEVEL 6-10 Last Admin: 10/07/17 13:32 Dose: 1,000 mg Atorvastatin Calcium (Lipitor -) 10 mg PO HS [facility] Last Admin: 10/07/17 22:34 Dose: 10 mg Heparin Sodium (Porcine) (Heparin -) 5,000 unit SQ TID [facility] Last Admin: 10/08/17 05:58 Dose: Not Given Insulin Aspart (Novolog Vial Sliding Scale -) 1 vial SQ ACHS [facility] PRN Reason: Protocol Last Admin: 10/08/17 11:51 Dose: Not Given Levothyroxine Sodium (Synthroid -) 100 mcg PO DAILY@0700 [facility] Last Admin: 10/08/17 06:08 Dose: 100 mcg Metoprolol Succinate (Toprol Xl -) 100 mg PO BID [facility] Nifedipine (Procardia Xl -) 30 mg PO DAILY [facility] Ondansetron HCl (Zofran Injection) 4 mg IVPUSH Q6H PRN PRN Reason: NAUSEA Last Admin: 10/07/17 12:01 Dose: 4 mg - Objective Vital Signs: Vital Signs Temperature 99 F 10/08/17 08:15 Pulse Rate 74 10/08/17 13:19 Respiratory Rate 22 10/08/17 08:15 Blood Pressure 210/96 10/08/17 13:56 O2 Sat by Pulse Oximetry (%) 90 L 10/08/17 09:00 General: Well developed. Well nourished. No acute distress. Head: Normocephalic. Atraumatic, Eyes: PERRLA, EOMI. Sclerae anicteric. Conjunctivae clear. Neck: Supple. No JVD. No bruits. Heart: Normal S1, S2: Regularly regular rhythm and rate. II/ HSM. No gallop or rub. Lungs: Symmetrical air entry. Clear to auscultation. No crackle. No wheezing or rhonchi. Abdomen: Soft. Bowel sound positive. Non tender. No masses. Extremities: No edema. Venous stasis. Labs: CBC, BMP 10/07/17 16:40 10/08/17 08:07 INR, PTT INR 1.02 (0.82-1.09) 10/07/17 07:15 Assessment/Plan 82 year old woman with a PMHx of HTN, DM, right breast mass s/p mastectomy 20 years ago, and CAD s/p stent many years ago admitted 10/06/2017 after a mechanical fall with left hip fracture. The patient was seen by Dr. James 2017 for preoperative cardiac clearance. But the planned operation canceled because of severe HTN. Ms. Sutton has no recent chest pain, SOB, palpitation, dizziness, syncope or near syncope. No symptoms of CHF. Reports her exercise level is poor at baseline and requires a walker due to balance issues. CXR: No CHF EKG: sinus rhythm at 78bpm, nl axis, nonspecific t wave abnormalities Cr 2.1 now 1.7 1) Severe hypertension: Increase metoprolol to 100 mg BID Start Nifedipine 30 mg BID. Continue Losartan 100 mg daily. Will consider increase Nifedipine or add Clonidine if BP remains high tomorrow. 2) Preop for hip fracture -Ms. Sutton's risk factors are HTN, DM, CAD, and VI on possible CKD. She has no symptoms of angina or CHF. No CHF on exam or CXR. Has a murmur in mitral area possible MR. EKG with nonspecific T wave abnormalities. No cardiac contraindications to hip fracture surgery once BP is under control. Patient reports that she takes aspirin and plavix at home. Plavix on hold. Would prefer to continue aspirin if possible. IVF's for VI Would continue beta thania periop given h/o CAD. We will follow with you.
[2017-10-08] MEDS ORDERED: cloNIDine HCL 0.1 MG TABLET PO ONE (18:03)
[2017-10-08] MEDS ORDERED: INSULIN (NOVOLOG) ASPART 100 UNITS/ML 10ML VIAL ONE (21:22)
[2017-10-08] MEDS: ATORVASTATIN CA 10 MG TABLET (FP) PO SCH (21:30)
[2017-10-08] MEDS: NIFEdipine E.R. 30 MG TABLET (FP) PO SCH (21:30)
[2017-10-08] MEDS: cloNIDine HCL 0.1 MG TABLET PO SCH (21:31)
[2017-10-08] MEDS ORDERED: metoPROLOL SUCCINATE 25 MG TAB.SR.24H (FP) PO SCH (22:00)
[2017-10-08] MEDS ORDERED: INSULIN (LEVEMIR) 100 UNITS/ML UNITS SQ SCH (22:00)
[2017-10-09] MEDS: LEVOTHYROXINE NA 100 MCG TABLET (FP) PO SCH (06:21)
[2017-10-09] MEDS: INSULIN SLIDING SCALE (NOVOLOG) 1 VIAL SQ SCH ×3 (06:22→21:56)
--- NOTE | 2017-10-09 07:49 | PN ---
Physical Exam: SUBJECTIVE: Patient seen and examined. Son present. Patient states she feels tired, but denies pain. OBJECTIVE: Vital Signs Period Temp Pulse Resp BP Sys/Buckley Pulse Ox Last 24 Hr 98.4 F-100.3 F 60-77 18-22 118-211/57-96 90-94 GENERAL: The patient is awake, alert, and fully oriented, in no acute distress. LUNGS: Breath sounds equal, clear to auscultation bilaterally, no wheezes, no crackles, no accessory muscle use. HEART: Regular rate and rhythm, S1, S2 ABDOMEN: Soft, nontender, nondistended, normoactive bowel sounds, no guarding, no rebound LOWER EXTREMITIES: 2+ pulses, warm, well-perfused, no edema. Left leg rotated and shorter NEUROLOGICAL: Cranial nerves II through XII grossly intact. Normal speech, gait not observed. Laboratory Results - last 24 hr 10/08/17 10/08/17 10/08/17 08:07 08:07 11:16 Sodium 138 Potassium 3.8 Chloride 104 Carbon Dioxide 19 L Anion Gap 15 BUN 38 H Creatinine 2.1 H POC Glucometer 240 Random Glucose 191 H Hemoglobin A1c % 9.3 H Calcium 8.2 L 10/08/17 10/08/17 10/09/17 17:08 20:49 06:20 Sodium Potassium Chloride Carbon Dioxide Anion Gap BUN Creatinine POC Glucometer 273 386 135 Random Glucose Hemoglobin A1c % Calcium Active Medications Generic Name Dose Route Start Last Admin Trade Name Freq PRN Reason Stop Dose Admin Acetaminophen 1,000 mg 10/07/17 03:25 10/07/17 13:32 Ofirmev Injection - IVPB 1,000 mg Q6H PRN Administration PAIN LEVEL 6-10 Atorvastatin Calcium 10 mg 10/07/17 22:00 10/08/17 21:30 Lipitor - PO 10 mg HS REYNALDO Administration Clonidine 0.1 mg 10/08/17 22:00 10/08/17 21:31 Catapres - PO 0.1 mg BID REYNALDO Administration Heparin Sodium (Porcine) 5,000 unit 10/07/17 14:00 10/08/17 05:58 Heparin - SQ Not Given TID [facility] Insulin Aspart 1 vial 10/07/17 07:00 10/09/17 06:22 Novolog Vial Sliding Scale - SQ Not Given ACHS [facility] Protocol Insulin Detemir 25 units 10/08/17 22:00 10/08/17 21:31 Levemir Vial SQ 25 units HS [facility] Administration Levothyroxine Sodium 100 mcg 10/07/17 07:00 10/09/17 06:21 Synthroid - PO 100 mcg DAILY@0700 [facility] Administration Metoprolol Succinate 50 mg 10/09/17 10:00 Toprol Xl - PO BID [facility]O Nifedipine 30 mg 10/08/17 22:00 10/08/17 21:30 Procardia Xl - PO 30 mg BID [facility] Administration Ondansetron HCl 4 mg 10/07/17 09:37 10/07/17 12:01 Zofran Injection IVPUSH 4 mg Q6H PRN Administration NAUSEA ASSESSMENT/PLAN 82 year-old female with a PMH significant for HTN, IDDM, CAD s/p stent, and right breast mass s/p mastectomy x 20 years. Admitted for left hip fracture s/p mechanical fall. Acute left femoral neck fracture with varus deformity --to OR later today Hypertensive urgency --increased Toprol XL 100mg to BID, resumed losartan (renal function stable) , started nifedipine XL 30mg BID and SBP still >200 last night; added clonidine with good effect on BP but dropped rate to 60; will lower Toprol XL to 50 BID --cardiology following IDDM --Novolog sliding scale coverage --Levemir 25U qhs Coronary artery disease --ASA and Plavix on hold for surgery FEN Fluids: PO intake adequate Electrolytes: replete as indicated Nutrition: low sodium, diabetic; NPO after midnight DVT prophylaxis: SCD on right leg; FREDRICK on left leg Physical therapy Dispo: continues to require inpatient care. Full code. Patient's son Napoleon . Visit type - Emergency Visit Emergency Visit: Yes ED Registration Date: 10/07/17 Care time: The patient presented to the Emergency Department on the above date and was hospitalized for further evaluation of their emergent condition. - New Patient This patient is new to me today: No - Critical Care Critical Care patient: No
[2017-10-09 08:20] LABS: BASO % 1.4 % (0-2.0); EOS % 0.9 % (0-4.5); HEMATOCRIT 26.4 % (32.4-45.2); HEMOGLOBIN 9.2 GM/dL (10.7-15.3); LYMPH % 9.9 % (8-40); MCH 31.7 pg (25.7-33.7); MCHC 34.8 g/dl (32.0-36.0); MEAN CELL VOLUME 91.2 fl (80-96); MEAN PLT VOLUME 11.1 fl (7.5-11.1); MONO % 11.6 % (3.8-10.2); NEUT % 76.2 % (42.8-82.8); PLATELET COUNT 171 K/MM3 (134-434); RDW 12.9 % (11.6-15.6); WHITE BLOOD COUNT 10.4 K/mm3 (4.0-10.0)
[2017-10-09 08:56] LABS: ALBUMIN 1.8 g/dl (3.4-5.0); ALK PHOS 43 U/L (45-117); ANION GAP 8 (8-16); BILIRUBIN,TOTAL 0.4 mg/dL (0.2-1.0); BLOOD UREA NITROGEN 42 mg/dL (7-18); CALCIUM 7.4 mg/dL (8.5-10.1); CHLORIDE 106 mmol/L (98-107); CO2 25 mmol/L (21-32); CREATININE 2.1 mg/dL (0.55-1.02); GLUCOSE,RANDOM 101 mg/dL (74-106); MAGNESIUM 1.9 mg/dL (1.8-2.4); POTASSIUM 3.6 mmol/L (3.5-5.1); SGOT/AST 11 U/L (15-37); SGPT/ALT 9 U/L (12-78); SODIUM 139 mmol/L (136-145); TOT PROT 4.9 g/dl (6.4-8.2)
[2017-10-09] MEDS: NIFEdipine E.R. 30 MG TABLET (FP) PO SCH (09:46)
[2017-10-09] MEDS: cloNIDine HCL 0.1 MG TABLET PO SCH (09:46)
--- NOTE | 2017-10-09 09:48 | PN ---
Progress Note, Physician Chief Complaint: The patient appears weak and lethargic. She denies chest pain, SOB or palpitation. BP is under control. History of Present Illness: 82 year old woman with a PMHx of HTN, DM, right breast mass s/p mastectomy 20 years ago, and CAD s/p stent many years ago admitted 10/06/2017 after a mechanical fall with left hip fracture. The patient was seen by Dr. James 2017 for preoperative cardiac clearance. But the planned operation postponed because of severe HTN. Her BP and heart rate are well controlled today. - Current Medication List Current Medications: Active Medications Acetaminophen (Ofirmev Injection -) 1,000 mg IVPB Q6H PRN PRN Reason: PAIN LEVEL 6-10 Last Admin: 10/07/17 13:32 Dose: 1,000 mg Atorvastatin Calcium (Lipitor -) 10 mg PO HS [facility] Last Admin: 10/08/17 21:30 Dose: 10 mg Clonidine (Catapres -) 0.1 mg PO BID [facility] Last Admin: 10/08/17 21:31 Dose: 0.1 mg Heparin Sodium (Porcine) (Heparin -) 5,000 unit SQ TID [facility] Last Admin: 10/08/17 05:58 Dose: Not Given Insulin Aspart (Novolog Vial Sliding Scale -) 1 vial SQ ACHS [facility] PRN Reason: Protocol Last Admin: 10/09/17 06:22 Dose: Not Given Insulin Detemir (Levemir Vial) 25 units SQ HS [facility] Last Admin: 10/08/17 21:31 Dose: 25 units Levothyroxine Sodium (Synthroid -) 100 mcg PO DAILY@0700 [facility] Last Admin: 10/09/17 06:21 Dose: 100 mcg Metoprolol Succinate (Toprol Xl -) 50 mg PO BID [facility] Nifedipine (Procardia Xl -) 30 mg PO BID [facility] Last Admin: 10/08/17 21:30 Dose: 30 mg Ondansetron HCl (Zofran Injection) 4 mg IVPUSH Q6H PRN PRN Reason: NAUSEA Last Admin: 10/07/17 12:01 Dose: 4 mg - Objective Vital Signs: Vital Signs Temperature 98.6 F 10/09/17 06:54 Pulse Rate 60 10/09/17 06:54 Respiratory Rate 18 10/09/17 06:54 Blood Pressure 118/60 10/09/17 06:54 O2 Sat by Pulse Oximetry (%) 94 L 10/08/17 21:00 General: Well developed. Well nourished. No acute distress. Head: Normocephalic. Atraumatic, Eyes: PERRLA, EOMI. Sclerae anicteric. Conjunctivae clear. Neck: Supple. No JVD. No bruits. Heart: Normal S1, S2: Regularly regular rhythm and rate. No murmur. No gallop or rub. Lungs: Symmetrical air entry. Clear to auscultation. No crackle. No wheezing or rhonchi. Abdomen: Soft. Bowel sound positive. Non tender. No masses. Extremities: No edema. Labs: CBC, BMP 10/09/17 07:45 INR, PTT INR 1.02 (0.82-1.09) 10/07/17 07:15 Assessment/Plan 82 year old woman with a PMHx of HTN, DM, right breast mass s/p mastectomy 20 years ago, and CAD s/p stent many years ago admitted 10/06/2017 after a mechanical fall with left hip fracture. The patient was seen by Dr. James 2017 for preoperative cardiac clearance. But the planned operation canceled because of severe HTN. Ms. Sutton has no recent chest pain, SOB, palpitation, dizziness, syncope or near syncope. No symptoms of CHF. Reports her exercise level is poor at baseline and requires a walker due to balance issues. CXR: No CHF EKG: sinus rhythm at 78bpm, nl axis, nonspecific t wave abnormalities Cr 2.1 now 1.7 1) Severe hypertension: BP is under control. Continue metoprolol to 100 mg BID Decrease Nifedipine to 30 mg once daily. Discontinue Clonidine. 2) Preop for hip fracture -Ms. Sutton's risk factors are HTN, DM, CAD, and VI on possible CKD. She has no symptoms of angina or CHF. No CHF on exam or CXR. Has a murmur in mitral area possible MR. EKG with nonspecific T wave abnormalities. No cardiac contraindications to hip fracture surgery. Patient reports that she takes aspirin and plavix at home. Plavix on hold. Would prefer to continue aspirin if possible. IVF's for VI Would continue beta thania periop given h/o CAD. We will follow with you.
[2017-10-09] MEDS ORDERED: INSULIN DETEMIR 25 UNIT SQ SCH (10:00)
[2017-10-09] MEDS ORDERED: NIFEdipine E.R. 30 MG TABLET (FP) PO SCH (10:00)
[2017-10-09] MEDS ORDERED: LACTATED RINGERS SOLUTION 1,000 ML IV SCH (15:00)
[2017-10-09] MEDS ORDERED: ceFAZolin SODIUM 1 GM VIAL ONE (15:11)
[2017-10-09] MEDS ORDERED: LIDOCAINE HCL/PF 2% SDV 5ML VIAL ONE (15:11)
[2017-10-09] MEDS ORDERED: PROPOFOL 20 ML ONE ×2 (15:11)
[2017-10-09] MEDS ORDERED: BUPIVACAINE 0.75% IN DEXTROSE/PF 2ML AMPULE NR ONE (15:12)
[2017-10-09] MEDS ORDERED: BUPIVACAINE HCL/PF 0.5% (5MG/ML) 10 ML VIAL ONE (15:25)
[2017-10-09] MEDS ORDERED: MIDAZOLAM HCL 2 MG/2 ML SINGLE DOSE VIAL ONE (15:28)
[2017-10-09] MEDS ORDERED: ceFAZolin SODIUM 1 GM VIAL IVPB ONE (15:45)
--- NOTE | 2017-10-09 16:33 | OP ---
Operative Note - Note: Operative Date: 10/09/17 Pre-Operative Diagnosis: left femoral neck fracture Operation: left hip hemiarthroplasty Implants: Michi Accolade Hip Darrell system: #5 stem, 45mm head, -4 neck Surgeon: Lloyd Mandujano Rehab Physician: Jonathan Gonzalez Anesthesiologist/TEMPLATE INSPECTOR: Frida Babb Specimens Removed: felmoral head Estimated Blood Loss (mls): 20 Drains, Volume Out (mls): 0 Blood Volume Replaced (mls): 0 Fluid Volume Replaced (mls): 700 Operative Report Dictated: Yes
--- NOTE | 2017-10-09 16:52 | PN ---
Progress Note (short form) - Note Progress Note: Went to see pt however she was in the OR, will see tomorrow. Renal function not changed from yesterday. Problem List - Problems (1) VI (acute kidney injury) Code(s): N17.9 - ACUTE KIDNEY FAILURE, UNSPECIFIED (2) Fractured femoral neck Code(s): S72.009A - FRACTURE OF UNSP PART OF NECK OF UNSP FEMUR, INIT Qualifiers: Encounter type: initial encounter Fracture type: closed Laterality: left Qualified Code(s): S72.002A - Fracture of unspecified part of neck of left femur, initial encounter for closed fracture
[2017-10-09] MEDS ORDERED: ACETAMINOPHEN 1000 MG/100 ML VIAL (NON FORMULARY) IVPB PRN (17:08)
[2017-10-09] MEDS ORDERED: ONDANSETRON 4 MG/2 ML VIAL IVPUSH PRN (17:08)
--- NOTE | 2017-10-09 17:08 | SPEC ---
DATE OF OPERATION: 10/09/2017 PREOPERATIVE DIAGNOSIS: Left femoral neck fracture. POSTOPERATIVE DIAGNOSIS: Left femoral neck fracture. PROCEDURE: Left hemiarthroplasty. SURGEON: Javed Villatoro M.D. ANIMAL NURSE: Henry Dos Santos ANESTHESIOLOGIST: Frida Babb M.D. ANESTHESIA: Spinal anesthesia sedation. DRAINS: None. COMPLICATIONS: None. SPECIMEN: Left femora head. TOTAL OPERATIVE TIME: 40 minutes. DESCRIPTION OF PROCEDURE: This patient is an 82-year-old female with preoperative diagnosis of left hip femoral neck fracture, left hip displacement with neck fracture. After understanding the potential risks, complications, alternatives, benefits to surgery versus nonsurgical treatment, the patient and his/her family elected to pursue this procedure. The patient was brought to the operating room, peripheral IV placed, IV sedation given, spinal anesthesia induced, IV sedation was given. The patient was placed into the fracture hip hemiarthroplasty table in the left lateral decubitus position with the left hip up towards the ceiling. Left lower extremity is prepped and draped in sterile fashion and standard posterolateral approach marked out with marking pen. The incision was made with a number 10 scalpel blade. Subcutaneous hemostasis was achieved with a Bovie cautery. Dissection then down through the adipose layers to the lateral fascia. This was incised longitudinally with the Bovie, and the Charnley retractor was placed into the wound. We then put the left leg into position of internal rotation which put tension on the short external rotators. The short external rotators and the posterior capsule were incised with a Bovie cautery. We were then able to dislocate the hip, bringing the broken femoral neck out through the wound. We put on the [place] accolade femoral neck cutting guide using the Bovie to isela our line and used the oscillating saw to cut the appropriate level. This level was at the level of the lesser trochanter where the fracture line extended to. This piece of bone was removed, and this exposed the femoral head. We were unable to get access to the head, it was so tight, and therefore a T-capsulotomy was made with the Bovie for later repair. This allowed us to gain access to the femoral head. The corkscrew was placed into the femoral head with the mallet and it was taken out. It would either be a 45-mm head. The area was copiously irrigated and washed out, some small bone fragments removed. The left in place on purpose resection. Next, the femoral neck was exposed with the [id number] retractor and the Cesilia retractor and first using a farebox repairer the hand reamers and the hand broaches, we put a size femoral broach, it seemed to fit quite well, and there was no rotational instability. The calcar reamer was then placed over the broach, and a -4 neck with a 53 head was placed. The hip was reduced; it had excellent suction, stability, leg length, and overall was quite happy with it in all planes. There was no instability, it was difficult to dislocate. We then were able to dislocate it, take out the trial prosthesis, irrigate the canal, and put in the real [place] accolade number 5 cementless Press-Fit femoral stem. I was able to Press-Fit it with a mallet down to the appropriate depth, this on the -4 neck, and a 53 bipolar head was hit on with the mallet over the jinny taper, it was held in place. I tried to pull off, I could not. I reduced it; it had excellent reduction, stability in all planes. Leg length again was checked and seemed to be excellent. The area was irrigated and washed out. The capsule was then closed with number 1 Tycron suture. The fascia was then closed with number 1 Tycron suture. Deep adipose layer also closed with number 1 Tycron, 2-0 Vicryl suture used to close the deep dermal layer, and final skin reapproximation was done with a running subcuticular 3-0 V-Loc suture. The area was then washed and dried and covered with Dermabond skin glue and Aquacel dressing. Total operative time was only 1 hour and 5 minutes. Fluid replacement was 1000 mL Plasma-Lyte. Blood loss was 75 mL. The patient was completely stable throughout the case. The patient was brought down out of the lateral decubitus position into the supine position and transferred to a stretcher. X-rays were taken. The patient was brought to the recovery room in stable condition. The patient was completely stable throughout the case. There was minimal blood loss. There were no complications. JAVED VILLATORO M.D. [facility] [id number]
[2017-10-09] MEDS: LACTATED RINGERS SOLUTION 1,000 ML IV SCH (20:00)
[2017-10-09] MEDS ORDERED: INSULIN (NOVOLOG) ASPART 100 UNITS/ML 10ML VIAL ONE (20:56)
[2017-10-09] MEDS: ATORVASTATIN CA 10 MG TABLET (FP) PO SCH (21:55)
[2017-10-09] MEDS: INSULIN (LEVEMIR) 100 UNITS/ML UNITS SQ SCH (21:55)
[2017-10-09] MEDS ORDERED: CEFAZOLIN 1 GM in DEXTROSE 5%-WATER - 50 ML IVPB SCH (23:00)
[2017-10-10] MEDS ORDERED: ceFAZolin SODIUM 1 GM VIAL ONE ×2 (01:24→10:08)
[2017-10-10] MEDS ORDERED: DEXTROSE 5%-WATER - 50 ML IVPB ONE ×2 (01:25→10:08)
[2017-10-10] MEDS: CEFAZOLIN 1 GM in DEXTROSE 5%-WATER - 50 ML IVPB SCH ×2 (01:26→10:18)
[2017-10-10] MEDS: INSULIN SLIDING SCALE (NOVOLOG) 1 VIAL SQ SCH ×4 (06:12→22:15)
[2017-10-10] MEDS: LEVOTHYROXINE NA 100 MCG TABLET (FP) PO SCH (06:12)
[2017-10-10] MEDS: LACTATED RINGERS SOLUTION 1,000 ML IV SCH (06:22)
[2017-10-10 08:06] LABS: HEMATOCRIT 27.6 % (32.4-45.2); HEMOGLOBIN 9.5 GM/dL (10.7-15.3); MCH 31.1 pg (25.7-33.7); MCHC 34.5 g/dl (32.0-36.0); MEAN PLT VOLUME 11.1 fl (7.5-11.1); PLATELET COUNT 175 K/MM3 (134-434); RBC 3.07 M/mm3 (3.60-5.2); RDW 12.6 % (11.6-15.6); WHITE BLOOD COUNT 12.3 K/mm3 (4.0-10.0)
[2017-10-10 08:29] LABS: CALCIUM 7.6 mg/dL (8.5-10.1); CHLORIDE 105 mmol/L (98-107); POTASSIUM 3.4 mmol/L (3.5-5.1); SODIUM 139 mmol/L (136-145)
[2017-10-10 08:32] LABS: ANION GAP 9 (8-16); BLOOD UREA NITROGEN 36 mg/dL (7-18); CO2 25 mmol/L (21-32); CREATININE 1.7 mg/dL (0.55-1.02); GLUCOSE,RANDOM 66 mg/dL (74-106)
--- NOTE | 2017-10-10 09:36 | PN ---
Physical Exam: SUBJECTIVE: Patient seen and examined at bedside. States no pain when not moving , pain with movement. OBJECTIVE: Vital Signs Period Temp Pulse Resp BP Sys/Buckley Pulse Ox Last 24 Hr 97.6 F-99.3 F 54-75 14-20 128-163/39-68 94-98 GENERAL: The patient is awake, alert, in no acute distress. LUNGS: Breath sounds equal, clear to auscultation bilaterally, no wheezes, no crackles, no accessory muscle use. HEART: Regular rate and rhythm, S1, S2 ABDOMEN: Soft, nontender, nondistended, normoactive bowel sounds, no guarding, no rebound LOWER EXTREMITIES: 2+ pulses, warm, well-perfused, no edema. [place] wedge in place. Surgical dressing c/d/i. NEUROLOGICAL: Cranial nerves II through XII grossly intact. Normal speech, gait not observed. Laboratory Results - last 24 hr 10/07/17 10/09/17 10/09/17 08:10 07:50 11:37 WBC RBC Hgb Hct MCV MCH MCHC RDW Plt Count MPV Sodium 139 Potassium 3.6 Chloride 106 Carbon Dioxide 25 Anion Gap 8 BUN 42 H Creatinine 2.1 H Creat Clearance w eGFR 22.49 POC Glucometer 126 Random Glucose 101 Calcium 7.4 L Magnesium 1.9 Total Bilirubin 0.4 AST 11 L ALT 9 L Alkaline Phosphatase 43 L Total Protein 4.9 L Albumin 1.8 L Crossmatch See Detail 10/09/17 10/09/17 10/09/17 18:21 19:27 21:19 WBC RBC Hgb Hct MCV MCH MCHC RDW Plt Count MPV Sodium Potassium Chloride Carbon Dioxide Anion Gap BUN Creatinine Creat Clearance w eGFR POC Glucometer 51 78 134 Random Glucose Calcium Magnesium Total Bilirubin AST ALT Alkaline Phosphatase Total Protein Albumin Crossmatch 10/10/17 10/10/17 10/10/17 06:09 07:40 07:40 WBC 12.3 H RBC 3.07 L Hgb 9.5 L Hct 27.6 L MCV 90.0 MCH 31.1 MCHC 34.5 RDW 12.6 Plt Count 175 MPV 11.1 Sodium 139 Potassium 3.4 L Chloride 105 Carbon Dioxide 25 Anion Gap 9 BUN 36 H Creatinine 1.7 H Creat Clearance w eGFR POC Glucometer 95 Random Glucose 66 L Calcium 7.6 L Magnesium Total Bilirubin AST ALT Alkaline Phosphatase Total Protein Albumin Crossmatch Current Medications Generic Name Dose Route Start Last Admin Trade Name Freq PRN Reason Stop Dose Admin Acetaminophen 1,000 mg 10/09/17 17:08 Ofirmev Injection - IVPB Q6H PRN PAIN LEVEL 6-10 Acetaminophen 650 mg 10/10/17 13:29 Tylenol - PO Q6H PRN PAIN LEVEL 1-5 Atorvastatin Calcium 10 mg 10/09/17 22:00 10/09/17 21:55 Lipitor - PO 10 mg HS [facility] Administration Clopidogrel Bisulfate 75 mg 10/10/17 10:00 10/10/17 10:18 Plavix - PO 75 mg DAILY [facility] Administration Insulin Aspart 1 vial 10/09/17 22:00 10/10/17 11:39 Novolog Vial Sliding Scale - SQ Not Given ACHS [facility] Protocol Insulin Detemir 25 units 10/09/17 22:00 10/09/17 21:55 Levemir Vial SQ 25 units HS [facility] Administration Levothyroxine Sodium 100 mcg 10/10/17 07:00 10/10/17 06:12 Synthroid - PO 100 mcg DAILY@0700 [facility] Administration Metoprolol Succinate 100 mg 10/09/17 22:00 10/10/17 10:18 Toprol Xl - PO 100 mg BID [facility] Administration Nifedipine 30 mg 10/10/17 10:00 10/10/17 10:18 Procardia Xl - PO 30 mg DAILY [facility] Administration Oxycodone HCl 5 mg 10/10/17 13:28 10/10/17 13:46 Roxicodone - PO 5 mg Q6H PRN Administration PAIN LEVEL 6-10 ASSESSMENT/PLAN 82 year-old female with a PMH significant for HTN, IDDM, CAD s/p stent, and right breast mass s/p mastectomy x 20 years. Admitted for left hip fracture s/p mechanical fall. Acute left femoral neck fracture with varus deformity --s/p left hip hemiarthroplasty, POD #1 --oxycodone, Tylenol PRN Hypertensive urgency --BP better controlled 150s/60s --continue Toprol XL 100mg BID, nifedipine 30mg daily IDDM --Novolog sliding scale coverage --Levemir 25U qhs Coronary artery disease --resume ASA and Plavix FEN Fluids: PO intake adequate Electrolytes: replete as indicated Nutrition: low sodium, diabetic DVT prophylaxis: TEDs, oob, early ambulation Physical therapy Dispo: continues to require inpatient care. Full code. Patient's son Napoleon . Needs SNF placement in [place] where resides. Visit type - Emergency Visit Emergency Visit: Yes ED Registration Date: 10/07/17 Care time: The patient presented to the Emergency Department on the above date and was hospitalized for further evaluation of their emergent condition. - New Patient This patient is new to me today: No - Critical Care Critical Care patient: No
[2017-10-10] MEDS ORDERED: CLOPIDOGREL BISULFATE 75 MG TABLET (FP) PO SCH (10:00)
[2017-10-10] MEDS ORDERED: PT OWN MED DRAWER 7, Y5N ONE (10:09)
[2017-10-10] MEDS: CLOPIDOGREL BISULFATE 75 MG TABLET (FP) PO SCH (10:18)
[2017-10-10] MEDS: NIFEdipine E.R. 30 MG TABLET (FP) PO SCH (10:18)
--- NOTE | 2017-10-10 11:18 | PN ---
Progress Note (short form) - Note Progress Note: Ortho Pt seen and examined s/p left hip quinten pod #1 Selected Entries 10/10/17 06:08 Temperature 99.3 F Pulse Rate 73 Respiratory 17 Rate Blood Pressure 155/68 Laboratory Tests 10/10/17 07:40 WBC 12.3 H Hgb 9.5 L Hct 27.6 L Plt Count 175 dressing c/d/i, calf soft, nt nvi a/p PT hip precautions dvt ppx pain control d/c planning
[2017-10-10] MEDS ORDERED: ONDANSETRON *ODT* 4 MG TABLET SL PRN (12:43)
--- NOTE | 2017-10-10 12:55 | PN ---
Progress Note, Physician History of Present Illness: Pt seen and examined at bedside. She is awake and alert. She is tolerating diet. - Current Medication List Current Medications: Active Medications Acetaminophen (Ofirmev Injection -) 1,000 mg IVPB Q6H PRN PRN Reason: PAIN LEVEL 6-10 Atorvastatin Calcium (Lipitor -) 10 mg PO HS [facility] Last Admin: 10/09/17 21:55 Dose: 10 mg Clopidogrel Bisulfate (Plavix -) 75 mg PO DAILY [facility] Last Admin: 10/10/17 10:18 Dose: 75 mg Fentanyl (Sublimaze Injection -) 50 mcg IVPUSH [id number] PRN PRN Reason: PAIN-PACU ORDER X 4 DOSES ONLY Insulin Aspart (Novolog Vial Sliding Scale -) 1 vial SQ ACHS [facility] PRN Reason: Protocol Last Admin: 10/10/17 11:39 Dose: Not Given Insulin Detemir (Levemir Vial) 25 units SQ [facility] Last Admin: 10/09/17 21:55 Dose: 25 units Levothyroxine Sodium (Synthroid -) 100 mcg PO DAILY@0700 [facility] Last Admin: 10/10/17 06:12 Dose: 100 mcg Metoprolol Succinate (Toprol Xl -) 100 mg PO BID [facility] Last Admin: 10/10/17 10:18 Dose: 100 mg Nifedipine (Procardia Xl -) 30 mg PO DAILY [facility] Last Admin: 10/10/17 10:18 Dose: 30 mg - Objective Vital Signs: Vital Signs Temperature 99.3 F 10/10/17 06:08 Pulse Rate 73 10/10/17 06:08 Respiratory Rate 17 10/10/17 06:08 Blood Pressure 155/68 10/10/17 06:08 O2 Sat by Pulse Oximetry (%) 94 L 10/09/17 21:00 Constitutional: Yes: Calm Eyes: Yes: Conjunctiva Clear HENT: Yes: Atraumatic Neck: Yes: Supple Cardiovascular: Yes: S1, S2 Respiratory: Yes: CTA Bilaterally Gastrointestinal: Yes: Soft Genitourinary: Yes: Chua Present Musculoskeletal: Yes: Other (s/p femoral fracture repair) Edema: No Neurological: Yes: Oriented Psychiatric: Yes: Oriented Labs: CBC, BMP 10/10/17 07:40 10/10/17 07:40 INR, PTT INR 1.02 (0.82-1.09) 10/07/17 07:15 Problem List - Problems (1) VI (acute kidney injury) Code(s): N17.9 - ACUTE KIDNEY FAILURE, UNSPECIFIED (2) Fractured femoral neck Code(s): S72.009A - FRACTURE OF UNSP PART OF NECK OF UNSP FEMUR, INIT Qualifiers: Encounter type: initial encounter Fracture type: closed Laterality: left Qualified Code(s): S72.002A - Fracture of unspecified part of neck of left femur, initial encounter for closed fracture Assessment/Plan Current Medications Generic Name Dose Route Start Last Admin Trade Name Freq PRN Reason Stop Dose Admin Acetaminophen 1,000 mg 10/09/17 17:08 Ofirmev Injection - IVPB Q6H PRN PAIN LEVEL 6-10 Atorvastatin Calcium 10 mg 10/09/17 22:00 10/09/17 21:55 Lipitor - PO 10 mg HS [facility] Administration Clopidogrel Bisulfate 75 mg 10/10/17 10:00 10/10/17 10:18 Plavix - PO 75 mg DAILY [facility] Administration Fentanyl 50 mcg 10/09/17 17:08 Sublimaze Injection - IVPUSH [id number] PRN PAIN-PACU ORDER X 4 DOSES ONLY Insulin Aspart 1 vial 10/09/17 22:00 10/10/17 11:39 Novolog Vial Sliding Scale - SQ Not Given ACHS [facility] Protocol Insulin Detemir 25 units 10/09/17 22:00 10/09/17 21:55 Levemir Vial SQ 25 units HS [facility] Administration Levothyroxine Sodium 100 mcg 10/10/17 07:00 10/10/17 06:12 Synthroid - PO 100 mcg DAILY@0700 [facility] Administration Metoprolol Succinate 100 mg 10/09/17 22:00 10/10/17 10:18 Toprol Xl - PO 100 mg BID [facility] Administration Nifedipine 30 mg 10/10/17 10:00 10/10/17 10:18 Procardia Xl - PO 30 mg DAILY [facility] Administration Impression 1. VI 2. femoral neck fracture 3. breast cancer s/p mastectomy 4. DM 5. HTN 6. Hypothyroid Plan - renal function is improving - cont with fluids - replace potassium - check mag - pain control - will need further renal workup - will need outpt workup and followup Dr French
[2017-10-10] MEDS ORDERED: ACETAMINOPHEN 325 MG TABLET (FP) PO PRN (13:29)
[2017-10-10] MEDS: oxyCODONE HCL 5 MG TABLET PO PRN (13:46)
[2017-10-10] MEDS ORDERED: POTASSIUM CHLORIDE TABS 20 MEQ TABLET.ER (FP) PO ONE (14:00)
--- NOTE | 2017-10-10 15:13 | PN ---
Progress Note, Physician Chief Complaint: The patient appears comfortable at the time of exam. She denies chest pain, SOB or palpitation. S/p left hip hemiarthroplasty 10/10/2017. History of Present Illness: 82 year old woman with a PMHx of HTN, DM, right breast mass s/p mastectomy 20 years ago, and CAD s/p stent many years ago admitted 10/06/2017 after a mechanical fall with left hip fracture. The patient was seen by Dr. James 2017 for preoperative cardiac clearance. But the planned operation postponed because of severe HTN. Her BP and heart rate control improved. S/p left hip hemiarthroplasty 10/10/2017. She tolerated the operation well. - Current Medication List Current Medications: Active Medications Acetaminophen (Ofirmev Injection -) 1,000 mg IVPB Q6H PRN PRN Reason: PAIN LEVEL 6-10 Acetaminophen (Tylenol -) 650 mg PO Q6H PRN PRN Reason: PAIN LEVEL 1-5 Aspirin (Ecotrin -) 81 mg PO DAILY [facility] Atorvastatin Calcium (Lipitor -) 10 mg PO HS [facility] Last Admin: 10/09/17 21:55 Dose: 10 mg Clopidogrel Bisulfate (Plavix -) 75 mg PO DAILY [facility] Last Admin: 10/10/17 10:18 Dose: 75 mg Insulin Aspart (Novolog Vial Sliding Scale -) 1 vial SQ ACHS [facility] PRN Reason: Protocol Last Admin: 10/10/17 11:39 Dose: Not Given Insulin Detemir (Levemir Vial) 25 units SQ HS [facility] Last Admin: 10/09/17 21:55 Dose: 25 units Levothyroxine Sodium (Synthroid -) 100 mcg PO DAILY@0700 [facility] Last Admin: 10/10/17 06:12 Dose: 100 mcg Metoprolol Succinate (Toprol Xl -) 100 mg PO BID [facility] Last Admin: 10/10/17 10:18 Dose: 100 mg Nifedipine (Procardia Xl -) 30 mg PO DAILY [facility] Last Admin: 10/10/17 10:18 Dose: 30 mg Oxycodone HCl (Roxicodone -) 5 mg PO Q6H PRN PRN Reason: PAIN LEVEL 6-10 Last Admin: 10/10/17 13:46 Dose: 5 mg - Objective Vital Signs: Vital Signs Temperature 98.6 F 10/10/17 13:27 Pulse Rate 76 10/10/17 13:27 Respiratory Rate 17 10/10/17 06:08 Blood Pressure 161/66 10/10/17 13:27 O2 Sat by Pulse Oximetry (%) 94 L 10/09/17 21:00 eneral: Well developed. Well nourished. No acute distress. Head: Normocephalic. Atraumatic, Eyes: PERRLA, EOMI. Sclerae anicteric. Conjunctivae clear. Neck: Supple. No JVD. No bruits. Heart: Normal S1, S2: Regularly regular rhythm and rate. No murmur. No gallop or rub. Lungs: Symmetrical air entry. Clear to auscultation. No crackle. No wheezing or rhonchi. Abdomen: Soft. Bowel sound positive. Non tender. No masses. Extremities: No edema. Labs: CBC, BMP 10/10/17 07:40 10/10/17 07:40 INR, PTT INR 1.02 (0.82-1.09) 10/07/17 07:15 Assessment/Plan 82 year old woman with a PMHx of HTN, DM, right breast mass s/p mastectomy 20 years ago, and CAD s/p stent many years ago admitted 10/06/2017 after a mechanical fall with left hip fracture. The patient was seen by Dr. James 2017 for preoperative cardiac clearance. But the planned operation canceled because of severe HTN. Her BP and heart rate control improved. S/p left hip hemiarthroplasty 10/10/2017. She tolerated the operation well. -Severe hypertension: BP control improved. Continue metoprolol to 100 mg BID May increase Nifedipine back to 30 mg BID if BP remains elevated. Please call us for reconsult as needed.
--- NOTE | 2017-10-10 15:36 | PN ---
Progress Note (short form) - Note Progress Note: Post op day#1.S/p Left hip hemiarthroplasty under spinal anesthesia uneventful.Patient stable.No any anesthesia related problem.Patient Dc from the anesthesia care.
[2017-10-10] MEDS: ATORVASTATIN CA 10 MG TABLET (FP) PO SCH (22:16)
[2017-10-10] MEDS: INSULIN (LEVEMIR) 100 UNITS/ML UNITS SQ SCH (22:16)
[2017-10-11] MEDS: LEVOTHYROXINE NA 100 MCG TABLET (FP) PO SCH (06:04)
[2017-10-11] MEDS: INSULIN SLIDING SCALE (NOVOLOG) 1 VIAL SQ SCH ×5 (06:04→21:14)
[2017-10-11 08:56] LABS: HEMATOCRIT 27.7 % (32.4-45.2); HEMOGLOBIN 9.7 GM/dL (10.7-15.3); MCH 31.1 pg (25.7-33.7); MCHC 34.9 g/dl (32.0-36.0); MEAN CELL VOLUME 89.2 fl (80-96); MEAN PLT VOLUME 10.7 fl (7.5-11.1); PLATELET COUNT 197 K/MM3 (134-434); RDW 12.5 % (11.6-15.6); WHITE BLOOD COUNT 14.2 K/mm3 (4.0-10.0)
--- NOTE | 2017-10-11 09:15 | PN ---
Progress Note (short form) - Note Progress Note: Ortho Pt seen and examined s/p left hip quinten pod #2 Selected Entries 10/11/17 06:36 Temperature 98.4 F Pulse Rate 75 Respiratory 19 Rate Blood Pressure 160/84 Laboratory Tests 10/11/17 08:40 WBC 14.2 H Hgb 9.7 L Hct 27.7 L Plt Count 197 dressing c/d/i, calf soft, nt nvi a/p PT hip precautions dvt ppx pain control d/c planning
[2017-10-11 09:19] LABS: ALBUMIN 1.7 g/dl (3.4-5.0); ALK PHOS 65 U/L (45-117); ANION GAP 8 (8-16); BILIRUBIN,TOTAL 0.3 mg/dL (0.2-1.0); BLOOD UREA NITROGEN 29 mg/dL (7-18); CALCIUM 7.5 mg/dL (8.5-10.1); CHLORIDE 106 mmol/L (98-107); CO2 25 mmol/L (21-32); CREATININE 1.5 mg/dL (0.55-1.02); GLUCOSE,RANDOM 73 mg/dL (74-106); MAGNESIUM 1.9 mg/dL (1.8-2.4); POTASSIUM 3.6 mmol/L (3.5-5.1); SGOT/AST 24 U/L (15-37); SGPT/ALT 11 U/L (12-78); SODIUM 139 mmol/L (136-145); TOT PROT 5.4 g/dl (6.4-8.2)
[2017-10-11] MEDS: ASPIRIN COATED 81 MG TABLET.EC PO SCH (10:55)
[2017-10-11] MEDS: NIFEdipine E.R. 30 MG TABLET (FP) PO SCH (10:55)
[2017-10-11] MEDS: CLOPIDOGREL BISULFATE 75 MG TABLET (FP) PO SCH (10:55)
[2017-10-11 14:02] LABS: HEMATOCRIT 27.8 % (32.4-45.2); HEMOGLOBIN 9.5 GM/dL (10.7-15.3); MCH 30.9 pg (25.7-33.7); MCHC 34.3 g/dl (32.0-36.0); MEAN CELL VOLUME 89.9 fl (80-96); MEAN PLT VOLUME 11.4 fl (7.5-11.1); PLATELET COUNT 187 K/MM3 (134-434); RBC 3.09 M/mm3 (3.60-5.2); RDW 12.8 % (11.6-15.6); WHITE BLOOD COUNT 14.3 K/mm3 (4.0-10.0)
--- NOTE | 2017-10-11 14:22 | PN ---
Progress Note, Physician History of Present Illness: Pt seen and examined at bedside. She is awake and alert. She denies shortness of breath. - Current Medication List Current Medications: Active Medications Acetaminophen (Ofirmev Injection -) 1,000 mg IVPB Q6H PRN PRN Reason: PAIN LEVEL 6-10 Acetaminophen (Tylenol -) 650 mg PO Q6H PRN PRN Reason: PAIN LEVEL 1-5 Last Admin: 10/10/17 22:26 Dose: 650 mg Aspirin (Ecotrin -) 81 mg PO DAILY [facility] Last Admin: 10/11/17 10:55 Dose: 81 mg Atorvastatin Calcium (Lipitor -) 10 mg PO HS [facility] Last Admin: 10/10/17 22:16 Dose: 10 mg Clopidogrel Bisulfate (Plavix -) 75 mg PO DAILY [facility] Last Admin: 10/11/17 10:55 Dose: 75 mg Insulin Aspart (Novolog Vial Sliding Scale -) 1 vial SQ [facility] PRN Reason: Protocol Last Admin: 10/11/17 10:57 Dose: Not Given Insulin Detemir (Levemir Vial) [address] [facility] Last Admin: 10/10/17 22:16 Dose: 25 units Levothyroxine Sodium (Synthroid -) 100 mcg PO DAILY@0700 [facility] Last Admin: 10/11/17 06:04 Dose: 100 mcg Metoprolol Succinate (Toprol Xl -) 100 mg PO BID [facility] Last Admin: 10/11/17 10:55 Dose: 100 mg Nifedipine (Procardia Xl -) 30 mg PO DAILY [facility] Last Admin: 10/11/17 10:55 Dose: 30 mg Oxycodone HCl (Roxicodone -) 5 mg PO Q6H PRN PRN Reason: PAIN LEVEL 6-10 Last Admin: 10/10/17 13:46 Dose: 5 mg - Objective Vital Signs: Vital Signs Temperature 98 F 10/11/17 10:00 Pulse Rate 98 H 10/11/17 10:00 Respiratory Rate 18 10/11/17 10:00 Blood Pressure 158/73 10/11/17 10:00 O2 Sat by Pulse Oximetry (%) 99 10/10/17 21:00 Constitutional: Yes: Calm Eyes: Yes: Conjunctiva Clear HENT: Yes: Atraumatic Neck: Yes: Supple Cardiovascular: Yes: S1, S2 Respiratory: Yes: CTA Bilaterally Gastrointestinal: Yes: Soft Genitourinary: Yes: WNL Musculoskeletal: Yes: Other (hip pain) Edema: No Neurological: Yes: Oriented Psychiatric: Yes: Oriented Labs: CBC, BMP 10/11/17 12:55 10/11/17 08:40 INR, PTT INR 1.02 (0.82-1.09) 10/07/17 07:15 Problem List - Problems (1) VI (acute kidney injury) Code(s): N17.9 - ACUTE KIDNEY FAILURE, UNSPECIFIED (2) Fractured femoral neck Code(s): S72.009A - FRACTURE OF UNSP PART OF NECK OF UNSP FEMUR, INIT Qualifiers: Encounter type: initial encounter Fracture type: closed Laterality: left Qualified Code(s): S72.002A - Fracture of unspecified part of neck of left femur, initial encounter for closed fracture Assessment/Plan Current Medications Generic Name Dose Route Start Last Admin Trade Name Freq PRN Reason Stop Dose Admin Acetaminophen 1,000 mg 10/09/17 17:08 Ofirmev Injection - IVPB Q6H PRN PAIN LEVEL 6-10 Acetaminophen 650 mg 10/10/17 13:29 10/10/17 22:26 Tylenol - PO 650 mg Q6H PRN Administration PAIN LEVEL 1-5 Aspirin 81 mg 10/11/17 10:00 10/11/17 10:55 Ecotrin - PO 81 mg DAILY REYNALDO Administration Atorvastatin Calcium 10 mg 10/09/17 22:00 10/10/17 22:16 Lipitor - PO 10 mg HS REYNALDO Administration Clopidogrel Bisulfate 75 mg 10/10/17 10:00 10/11/17 10:55 Plavix - PO 75 mg DAILY REYNALDO Administration Insulin Aspart 1 vial 10/09/17 22:00 10/11/17 10:57 Novolog Vial Sliding Scale - SQ Not Given ACHS [facility] Protocol Insulin Detemir 25 units 10/09/17 22:00 10/10/17 22:16 Levemir Vial SQ 25 units HS REYNALDO Administration Levothyroxine Sodium 100 mcg 10/10/17 07:00 10/11/17 06:04 Synthroid - PO 100 mcg DAILY@0700 REYNALDO Administration Metoprolol Succinate 100 mg 10/09/17 22:00 10/11/17 10:55 Toprol Xl - PO 100 mg BID RYENALDO Administration Nifedipine 30 mg 10/10/17 10:00 10/11/17 10:55 Procardia Xl - PO 30 mg DAILY REYNALDO Administration Oxycodone HCl 5 mg 10/10/17 13:28 10/10/17 13:46 Roxicodone - PO 5 mg Q6H PRN Administration PAIN LEVEL 6-10 Laboratory Tests 10/11/17 08:40 Potassium 3.6 Magnesium 1.9 Impression 1. VI 2. femoral neck fracture 3. breast cancer s/p mastectomy 4. DM 5. HTN 6. Hypothyroid Plan - renal function continues to improve - potassium improved - mag normal - repeat labs in am - will need outpt renal workup - avoid nsaids Dr French
--- NOTE | 2017-10-11 16:55 | PN ---
Progress Note (short form) - Note Progress Note: Subjective: The patient was seen and examined at the bedside, she has no complaints at this time. She has said "please leave me alone" and has refused any further questions or examinations. Current Medications Generic Name Dose Route Start Last Admin Trade Name Freq PRN Reason Stop Dose Admin Acetaminophen 1,000 mg 10/09/17 17:08 10/11/17 16:26 Ofirmev Injection - IVPB 1,000 mg Q6H PRN Administration PAIN LEVEL 6-10 Acetaminophen 650 mg 10/10/17 13:29 10/10/17 22:26 Tylenol - PO 650 mg Q6H PRN Administration PAIN LEVEL 1-5 Aspirin 81 mg 10/11/17 10:00 10/11/17 10:55 Ecotrin - PO 81 mg DAILY REYNALDO Administration Atorvastatin Calcium 10 mg 10/09/17 22:00 10/10/17 22:16 Lipitor - PO 10 mg HS REYNALDO Administration Clopidogrel Bisulfate 75 mg 10/10/17 10:00 10/11/17 10:55 Plavix - PO 75 mg DAILY REYNLADO Administration Insulin Aspart 1 vial 10/09/17 22:00 10/11/17 10:57 Novolog Vial Sliding Scale - SQ Not Given ACHS [facility] Protocol Insulin Detemir 25 units 10/09/17 22:00 10/10/17 22:16 Levemir Vial SQ 25 units HS REYNALDO Administration Levothyroxine Sodium 100 mcg 10/10/17 07:00 10/11/17 06:04 Synthroid - PO 100 mcg DAILY@0700 REYNALDO Administration Metoprolol Succinate 100 mg 10/09/17 22:00 10/11/17 10:55 Toprol Xl - PO 100 mg BID REYNALDO Administration Nifedipine 30 mg 10/10/17 10:00 10/11/17 10:55 Procardia Xl - PO 30 mg DAILY REYNALDO Administration Oxycodone HCl 5 mg 10/10/17 13:28 10/10/17 13:46 Roxicodone - PO 5 mg Q6H PRN Administration PAIN LEVEL 6-10 Objective: Vital Signs Period Temp Pulse Resp BP Sys/Buckley Pulse Ox Last 24 Hr 98 F-99.7 F 75-98 18-20 148-160/59-84 99 Physical Exam: Refused CBCD WBC 14.3 K/mm3 (4.0-10.0) H 10/11/17 12:55 RBC 3.09 M/mm3 (3.60-5.2) L 10/11/17 12:55 Hgb 9.5 GM/dL (10.7-15.3) L 10/11/17 12:55 Hct 27.8 % (32.4-45.2) L 10/11/17 12:55 MCV 89.9 fl (80-96) 10/11/17 12:55 MCHC 34.3 g/dl (32.0-36.0) 10/11/17 12:55 RDW 12.8 % (11.6-15.6) 10/11/17 12:55 Plt Count 187 K/MM3 (134-434) 10/11/17 12:55 MPV 11.4 fl (7.5-11.1) H 10/11/17 12:55 CMP Sodium 139 mmol/L (136-145) 10/11/17 08:40 Potassium 3.6 mmol/L (3.5-5.1) 10/11/17 08:40 Chloride 106 mmol/L (98-107) 10/11/17 08:40 Carbon Dioxide 25 mmol/L (21-32) 10/11/17 08:40 Anion Gap 8 (8-16) 10/11/17 08:40 BUN 29 mg/dL (7-18) H 10/11/17 08:40 Creatinine 1.5 mg/dL (0.55-1.02) H 10/11/17 08:40 Creat Clearance w eGFR 33.16 (>60) 10/11/17 08:40 Random Glucose 73 mg/dL (74-106) L 10/11/17 08:40 Calcium 7.5 mg/dL (8.5-10.1) L 10/11/17 08:40 Total Bilirubin 0.3 mg/dL (0.2-1.0) D 10/11/17 08:40 AST 24 U/L (15-37) 10/11/17 08:40 ALT 11 U/L (12-78) L 10/11/17 08:40 Alkaline Phosphatase 65 U/L (45-117) 10/11/17 08:40 Total Protein 5.4 g/dl (6.4-8.2) L 10/11/17 08:40 Albumin 1.7 g/dl (3.4-5.0) L 10/11/17 08:40 CARDIAC ENZYMES Creatine Kinase 68 IU/L (26-192) 10/07/17 16:40 Assessment: This is an 82 year old female with PMHx of HTN, IDDM, CAD s/p stent , right breast mass s/p mastectomy 20 years ago, who presented to the ED s/p mechanical fall and was found to have a left hip fracture. Plan: 1) Left femoral neck fracture - S/p left hip hemiarthroplasty on 10/09 - Pain management: Acetaminophen, Oxycodone - PT - Appreciate ortho consult 2) Leukocytosis - Likely reactive 2/ surgery - Monitor for fevers, remains afebrile - Trend WBC 3) HTN - Continue Toprol Xl 100mg po bid - Continue Procardia Xl 30mg po daily (can increase to bid if remains hypertensive) - Appreciate cardiology consult 4) IDDM - BGM ACHS - ISS ACHS 5) F/E/N: - Diabetic/sodium controlled diet - Monitor electrolytes 6) Prophylaxis: - DVT prophylaxis per surgery - SCDs/TEDs bilaterally 7) Dispo: - Requires continued inpatient care CODE STATUS: FULL CODE Visit type - Emergency Visit Emergency Visit: Yes ED Registration Date: 10/07/17 Care time: The patient presented to the Emergency Department on the above date and was hospitalized for further evaluation of their emergent condition. - New Patient This patient is new to me today: Yes Date on this admission: 10/11/17 - Critical Care Critical Care patient: No
[2017-10-11] MEDS ORDERED: INSULIN (NOVOLOG) ASPART 100 UNITS/ML 10ML VIAL ONE ×2 (17:00→20:52)
[2017-10-11] MEDS: ATORVASTATIN CA 10 MG TABLET (FP) PO SCH (21:14)
[2017-10-11] MEDS: INSULIN (LEVEMIR) 100 UNITS/ML UNITS SQ SCH (21:16)
[2017-10-11] MEDS ORDERED: NIFEdipine E.R. 30 MG TABLET (FP) PO SCH (22:00)
[2017-10-12] MEDS: LEVOTHYROXINE NA 100 MCG TABLET (FP) PO SCH (05:59)
[2017-10-12] MEDS: oxyCODONE HCL 5 MG TABLET PO PRN (05:59)
[2017-10-12] MEDS: INSULIN SLIDING SCALE (NOVOLOG) 1 VIAL SQ SCH ×2 (06:04→11:54)
[2017-10-12 08:18] LABS: BASO % 0.2 % (0-2.0); EOS % 0.4 % (0-4.5); HEMATOCRIT 25.9 % (32.4-45.2); HEMOGLOBIN 9.1 GM/dL (10.7-15.3); LYMPH % 4.8 % (8-40); MCH 31.5 pg (25.7-33.7); MCHC 35.1 g/dl (32.0-36.0); MEAN CELL VOLUME 89.9 fl (80-96); MEAN PLT VOLUME 10.9 fl (7.5-11.1); MONO % 11.6 % (3.8-10.2); PLATELET COUNT 212 K/MM3 (134-434); RBC 2.88 M/mm3 (3.60-5.2); RDW 12.8 % (11.6-15.6); WHITE BLOOD COUNT 12.5 K/mm3 (4.0-10.0)
[2017-10-12 08:28] VITALS: BP 154/63; PULSE 66; TEMP 97.9
[2017-10-12 08:58] LABS: ANION GAP 9 (8-16); BLOOD UREA NITROGEN 34 mg/dL (7-18); CALCIUM 7.7 mg/dL (8.5-10.1); CHLORIDE 105 mmol/L (98-107); CO2 24 mmol/L (21-32); CREATININE 1.7 mg/dL (0.55-1.02); GLUCOSE,RANDOM 87 mg/dL (74-106); POTASSIUM 3.4 mmol/L (3.5-5.1); SODIUM 138 mmol/L (136-145)
--- NOTE | 2017-10-12 09:03 | DS ---
Physical Exam: SUBJECTIVE: Patient seen and examined OBJECTIVE: Vital Signs Period Temp Pulse Resp BP Sys/Buckley Pulse Ox Last 24 Hr 97.9 F-98.8 F 66-101 18-20 132-158/60-96 94 PHYSICAL EXAM GENERAL: The patient is awake, alert, and fully oriented, in no acute distress. HEAD: Normal with no signs of trauma. EYES: PERRL, extraocular movements intact, sclera anicteric, conjunctiva clear. ENT: Ears normal, nares patent, oropharynx clear without exudates, moist mucous membranes. NECK: Trachea midline, full range of motion, supple. LUNGS: Breath sounds equal, clear to auscultation bilaterally, no wheezes, no crackles, no accessory muscle use. HEART: Regular rate and rhythm, S1, S2 without murmur, rub or gallop. ABDOMEN: Soft, nontender, nondistended, normoactive bowel sounds, no guarding, no rebound, no hepatosplenomegaly, no masses. EXTREMITIES: 2+ pulses, warm, well-perfused, no edema. NEUROLOGICAL: Cranial nerves II through XII grossly intact. Normal speech, gait not observed. PSYCH: Normal mood, normal affect. SKIN: Warm, dry, normal turgor, no rashes or lesions noted. LABS Laboratory Results - last 24 hr 10/11/17 10/11/17 10/11/17 08:40 10:57 12:55 WBC 14.3 H RBC 3.09 L Hgb 9.5 L Hct 27.8 L MCV 89.9 MCH 30.9 MCHC 34.3 RDW 12.8 Plt Count 187 MPV 11.4 H Neutrophils % Lymphocytes % Monocytes % Eosinophils % Basophils % Sodium 139 Potassium 3.6 Chloride 106 Carbon Dioxide 25 Anion Gap 8 BUN 29 H Creatinine 1.5 H Creat Clearance w eGFR 33.16 POC Glucometer 142 Random Glucose 73 L Calcium 7.5 L Magnesium 1.9 Total Bilirubin 0.3 D AST 24 ALT 11 L Alkaline Phosphatase 65 Total Protein 5.4 L Albumin 1.7 L 10/11/17 10/11/17 10/12/17 16:38 20:41 05:58 WBC RBC Hgb Hct MCV MCH MCHC RDW Plt Count MPV Neutrophils % Lymphocytes % Monocytes % Eosinophils % Basophils % Sodium Potassium Chloride Carbon Dioxide Anion Gap BUN Creatinine Creat Clearance w eGFR POC Glucometer 215 229 60 Random Glucose Calcium Magnesium Total Bilirubin AST ALT Alkaline Phosphatase Total Protein Albumin 10/12/17 07:25 WBC 12.5 H RBC 2.88 L Hgb 9.1 L Hct 25.9 L MCV 89.9 MCH 31.5 MCHC 35.1 RDW 12.8 Plt Count 212 MPV 10.9 Neutrophils % 83.0 H Lymphocytes % 4.8 L D Monocytes % 11.6 H Eosinophils % 0.4 Basophils % 0.2 Sodium Potassium Chloride Carbon Dioxide Anion Gap BUN Creatinine Creat Clearance w eGFR POC Glucometer Random Glucose Calcium Magnesium Total Bilirubin AST ALT Alkaline Phosphatase Total Protein Albumin HOSPITAL COURSE: Date of Admission:10/07/17 Date of Discharge: 10/12/17 Discharge Summary Reason For Visit: ACUTE KIDNEY INJURY FRACTURE OF NECK Current Active Problems VI (acute kidney injury) (Acute) Fractured femoral neck (Acute) Condition: Improved - Instructions Diet, Activity, Other Instructions: Please return to the ED with new, persistent, or worsening symptoms. Please follow-up with providers as indicated. Referrals: Brien Gilmore MD [Staff Physician] - Zachary French MD [Staff Physician] - Gregorio Holloway MD [Staff Physician] - Lloyd Mandujano MD [Staff Physician] - Disposition: LONG TERM FACILITY - Home Medications Comprehensive Discharge Medication List: Ambulatory Orders Clopidogrel Bisulfate [Clopidogrel] 75 mg PO DAILY 10/06/17 Levothyroxine [Synthroid -] 100 mcg PO DAILY 10/06/17 Simvastatin 20 mg PO DAILY 10/06/17 Acetaminophen [Tylenol .Regular Strength -] 650 mg PO Q6H PRN tablet 10/12/17 Aspirin Coated [Ecotrin -] 81 mg PO DAILY tablet.ec 10/12/17 Insulin (Levemir) [Levemir Vial] 25 units SQ HS ml 10/12/17 Insulin Sliding Scale [Novolog Vial Sliding Scale -] 1 vial SQ ACHS units 10/12 Metoprolol Succinate [Toprol XL -] 100 mg PO BID tab.sr.24h 10/12/17 Nifedipine ER [Procardia XL -] 30 mg PO DAILY tab.er.24 10/12/17 oxyCODONE HCL [Roxicodone -] 5 mg PO Q6H PRN tablet MDD 20mg 10/12/17
[2017-10-12] MEDS ORDERED: POTASSIUM CHLORIDE TABS 20 MEQ TABLET.ER (FP) PO ONE (09:25)
[2017-10-12] MEDS ORDERED: DOCUSATE SODIUM 100 MG CAPSULE (FP) PO PRN (09:51)
[2017-10-12] MEDS ORDERED: NIFEdipine E.R. 30 MG TABLET (FP) PO SCH ×2 (10:00)
[2017-10-12] MEDS: CLOPIDOGREL BISULFATE 75 MG TABLET (FP) PO SCH (10:30)
[2017-10-12] MEDS: ASPIRIN COATED 81 MG TABLET.EC PO SCH (10:31)
[2017-10-12] MEDS ORDERED: INSULIN (NOVOLOG) ASPART 100 UNITS/ML 10ML VIAL ONE (11:53)
--- NOTE | 2017-10-12 15:31 | PATH ---
Surgical Pathology Report Patient Name: MARIALUISA DIAZ Med. Rec. #: [id number] /Age/Gender: 1935 (Age: 82) / F Account: [id number] Location: [address] [place] [address]/[facility] Taken: 10/09/2017 Received: 10/10/2017 Reported: 10/12/2017 Physicians: Tosha Melendez ACNP Specimen(s) Received LEFT FEMORAL HEAD Clinical History Fracture left hip neck Final Diagnosis FEMORAL HEAD, LEFT, HIP HEMIARTHROPLASTY: BONE WITH INTERSTITIAL HEMORRHAGE CONSISTENT WITH FRACTURE. Electronically Signed Guillermina Ivy M.D. Gross Description Received in formalin, labeled "left femoral head," is a 4.0 x 4.0 x 3.4 cm. femoral head with no femoral neck attached. The margin of resection is red-brown, jagged and hemorrhagic. No areas of eburnation are identified. The articular surface is leon-yellow and focally granular. The underlying trabecular bone is yellow, hard and focally hemorrhagic. A fundraising sale representative section is submitted in one cassette, following decalcification. /10/10/201710/10/2017
== END 2017-10-12 13:35 | DRG 470 ==
LOC: JER 22:28 → JERBED 10-07 01:58 → J6S 10-07 04:18
PROVIDERS: ADMIT Internal Medicine; ATTEND Registered Nurse
PROC: 0SRS0JA Replacement of Left Hip Joint, Femoral Surface with Synthetic Substitute, Uncemented, Open Approach (ICD-10-PCS; principal; 2017-10-07)
PROC: 30233H1 Transfusion of Nonautologous Whole Blood into Peripheral Vein, Percutaneous Approach (ICD-10-PCS; 2017-10-07)
DX: S72.002A Fracture of unspecified part of neck of left femur, initial encounter for closed fracture (principal); N17.9 Acute kidney failure, unspecified; D62 Acute posthemorrhagic anemia; W01.0XXA Fall on same level from slipping, tripping and stumbling without subsequent striking against object, initial encounter; Y93.01 Activity, walking, marching and hiking; E11.22 Type 2 diabetes mellitus with diabetic chronic kidney disease; Y99.8 Other external cause status; Y92.89 Other specified places as the place of occurrence of the external cause; E11.65 Type 2 diabetes mellitus with hyperglycemia; I10 Essential (primary) hypertension; I25.10 Atherosclerotic heart disease of native coronary artery without angina pectoris; I16.0 Hypertensive urgency; Z90.11 Acquired absence of right breast and nipple; Z79.4 Long term (current) use of insulin; E03.9 Hypothyroidism, unspecified; Z95.5 Presence of coronary angioplasty implant and graft; E78.5 Hyperlipidemia, unspecified; Z85.3 Personal history of malignant neoplasm of breast
CPT/HCPCS: 36415; 71045-TC-FY; 73502-TC-LT-FY; 73523-TC-FY; 76775-TC; 80048; 80053; 81003; 81015; 82436; 82550; 82570; 82962; 83036; 83735; 83930; 83935; 84100; 84133; 84156; 84300; 85025; 85027; 85610; 85730; 86850; 86900; 86901; 86922; 88305-TC; 88311-TC; 93005; 93010; 94760; 97116-GP; 97161-GP; 99284-25; J0131; J0735; J1644; J7030